=== PATIENT | male | born 1935 | race Caucasian/White ===

== ENCOUNTER 2018-03-13 14:36 | Inpatient (IN) ==
[2018-03-13] MEDS ORDERED: Ipratropium/Albuterol Neb 3 ML IH ONE (15:44)
[2018-03-13 15:50] LABS: Basophils # 0.1 K/mcL (0.0-0.2); Basophils % 1.2 %; Eosinophils # 0.2 K/mcL (0.0-0.6); Eosinophils % 4.2 %; Hematocrit 39.2 % (37.5-50.1); Hemoglobin 13.2 g/dL (12.9-16.9); Immature Granulocytes % 1.5 % (0-4); Lymphocytes # 0.7 K/mcL (0.6-4.6); Lymphocytes % 14.1 %; Mean Corpuscular HGB Conc 33.7 g/dL (31.6-35.5); Mean Corpuscular Hemoglobin 29.9 pg (28.0-33.3); Mean Corpuscular Volume 88.9 fL (83.0-100.0); Mean Platelet Volume 9.4 fL (9.4-12.4); Monocytes # 0.7 K/mcL (0.0-1.3); Monocytes % 13.5 %; Neutrophils # 3.4 K/mcL (1.6-8.9); Platelet Count 194 K/mcL (140-400); Red Blood Count 4.41 M/mcL (4.19-5.50); Red Cell Distribution Width 14.8 % (11.5-14.5); Segmented Neutrophils % 65.5 %
--- NOTE | 2018-03-13 15:56 | Emergency Department Note ---
Disposition Clinical Impression: Collapse of left lung, Mucus plugging of bronchi Disposition: Admitted As Inpatient Condition: Good Time of Disposition: 17:09 General Adult HPI - General Chief complaint: ED Shortness of Breath/Dyspnea Stated complaint: abnormal ct results/fluid in L lung sent from onc Time Seen by Provider: 03/13/18 14:59 Source: patient Mode of arrival: ambulatory Limitations: no limitations Nursing Notes Reviewed: Yes Vital Signs Reviewed: Yes - History of Present Illness HPI Narrative: Patient is an 82-year-old male that presents the emergency department for possible fluid on his lungs. Patient states that he was seen at the cancer center today and had a CT scan a follow-up on his lung cancer and was found to have fluid on his left long and was told to come to the emergency department immediately. Patient denies any chest pain, shortness of breath or any other symptoms at this time. Patient states that he is feeling well and has no complaints. States that he felt like his breathing was doing pretty well. Patient states that he wears 2 L of oxygen at home. Pain Scale: 0 - Related Data Home Medications Medication Instructions Recorded Confirmed Acetaminophen [Non-Aspirin] 650 mg PO QID PRN 07/11/16 03/13/18 Albuterol Sulfate [Albuterol 2 puff IH Q4H PRN 07/11/16 03/13/18 Inhaler] Aspirin [Lo-Dose Aspirin EC] 81 mg PO DAILY 07/11/16 03/13/18 Atorvastatin [Lipitor] 40 mg PO HS 07/11/16 03/13/18 Brimonidine Tartrate [Alphagan P] 5 ml OP BID 07/11/16 03/13/18 Carboxymethylcellulose Sodium 1 drop OP QID 07/11/16 03/13/18 [Refresh Celluvisc] Gabapentin [Neurontin] 300 mg PO BID 07/11/16 03/13/18 Latanoprost [Xalatan] 1 drop OP DAILY 07/11/16 03/13/18 Primidone [Mysoline] 100 mg PO BID 07/11/16 03/13/18 Propranolol [Inderal] 10 mg PO BID PRN 07/11/16 03/13/18 Terazosin [Hytrin] 2 mg PO HS 07/11/16 03/13/18 Albuterol Neb [AccuNeb] 3 ml IH QID PRN 02/16/17 03/13/18 Multivit-Min/Iron Fum/Folic AC 1 tab PO DAILY 08/16/17 03/13/18 [Cjngr-Fjjhrbh-Urvegxzj Tablet] Peg 400/Hypromellose/Glycerin 1 drop OP TID PRN 11/14/17 03/13/18 [Visine Tired Eye Relief Drop] Simethicone [Gas-X] 80 mg PO TID PRN 11/14/17 03/13/18 Tiotropium [Spiriva] 18 mcg IH DAILY 03/13/18 03/13/18 Previous Rx's Medication Instructions Recorded Zolpidem [Ambien] 10 mg PO HS #30 tablet 07/06/17 Omeprazole [PriLOSEC] 20 mg PO BID #60 capsule. 09/29/17 Allergies Allergy/AdvReac Type Severity Reaction Status Date / Time budesonide Allergy Heartburn Verified 03/13/18 14:41 Sulfa (Sulfonamide AdvReac Intermediate Rash Verified 03/13/18 14:41 Antibiotics) acetaminophen [From Vicodin] AdvReac Nausea Verified 03/13/18 14:41 Formoterol AdvReac Heartburn Verified 03/13/18 14:41 hydrocodone [From Vicodin] AdvReac Nausea Verified 03/13/18 14:41 All systems ED: reviewed and negative except as stated. Constitutional: Denies: fever Cardiovascular: Denies: chest pain Respiratory: Denies: dyspnea Gastrointestinal: Denies: abdominal pain, vomiting, diarrhea Past Medical History - Past Medical History Medical history: Reports: arthritis, asthma, cancer, COPD, GERD, glaucoma, hyperlipidemia Psychiatric history: Reports: no psych history - Social History Smoking Status: Current every day smoker Smokeless Tobacco Status: No Alcohol use: Reports: none Drug use: Reports: none Physical Exam - General Limitations: no limitations General appearance: alert, in no apparent distress - Head Head exam: atraumatic, normocephalic - Eye Eye exam: Present: normal appearance, EOMI - Neck Neck exam: Present: normal inspection, full ROM, trachea midline - Respiratory Respiratory exam: Present: other (coarse breath sounds on the left). Absent: respiratory distress, wheezes - Cardiovascular Cardiovascular exam: Present: regular rate, normal rhythm, normal heart sounds, +S1, +S2 - Abdominal Exam Abdominal exam: Present: soft, Non-Tender, normal bowel sounds - Neurological Exam Neurological exam: Present: alert, oriented X3 - Psychiatric Psychiatric exam: Present: normal affect, normal mood - Skin Skin exam: Present: warm, dry, intact Course Vital Signs Temperature 97.6 F 03/13/18 14:38 Pulse Rate 85 03/13/18 14:38 Respiratory Rate 18 03/13/18 14:38 Blood Pressure 124/58 03/13/18 14:38 O2 Sat by Pulse Oximetry 95 03/13/18 14:38 Temperature 97.6 F 03/13/18 14:38 Pulse Rate 77 03/13/18 16:34 Respiratory Rate 16 03/13/18 16:34 Blood Pressure 124/72 03/13/18 16:34 O2 Sat by Pulse Oximetry 96 03/13/18 16:34 Oxygen Delivery Oxygen Delivery Nasal Cannula Medical Decision Making - MDM Narrative Medical decision making narrative: Due to the patient presenting to the emergency department with possible fluid on his lungs laboratory testing, chest x-ray and EKG will be performed. CT scan show that there was collapse of the left upper lung likely secondary to mucous plugging. Patient was given DuoNeb therapies here in the emergency department as well as mucolytics. Patient's laboratory testing is unremarkable other than a mildly elevated BNP at 124. Patient is asymptomatic. Patient is afebrile and does not have a white count. I called and spoke the admitting hospitals and they have accepted the patient with a request of Zosyn being started and pulmonology being contacted. I called and spoke with the on-call underwater trapper and he has recommended that the patient be nothing by mouth at midnight, have chest percussion therapy and EzPAP therapy. Place an order for the chest percussion therapy and called and spoke with Cameron mcpherson respiratory therapist and she said she would take care of the EzPAP. Patient will be admitted to the hospital this time for further evaluation and management. - Medical Records Medical records reviewed: Yes I reviewed the patient's medical records. - Lab Data Lab results reviewed: Yes I reviewed the patient's lab results. Result diagrams: 03/13/18 15:25 03/13/18 15:25 Lab Results 03/13/18 03/13/18 03/13/18 Range/Units 15:25 15:25 15:25 WBC 5.2 (4.3-11.1) K/mcL RBC 4.41 (4.19-5.50) M/mcL Hgb 13.2 (12.9-16.9) g/dL Hct 39.2 (37.5-50.1) % MCV 88.9 (83.0-100.0) fL MCH 29.9 (28.0-33.3) pg MCHC 33.7 (31.6-35.5) g/dL RDW 14.8 H (11.5-14.5) % Plt Count 194 (140-400) K/mcL MPV 9.4 (9.4-12.4) fL Immature Gran % 1.5 (0-4) % Seg Neutrophils % 65.5 % Lymphocytes % 14.1 % Monocytes % 13.5 % Eosinophils % 4.2 % Basophils % 1.2 % Neutrophils # 3.4 (1.6-8.9) K/mcL Lymphocytes # 0.7 (0.6-4.6) K/mcL Monocytes # 0.7 (0.0-1.3) K/mcL Eosinophils # 0.2 (0.0-0.6) K/mcL Basophils # 0.1 (0.0-0.2) K/mcL Sodium 134 L (136-145) mEq/L Potassium 3.8 (3.5-5.1) mEq/L Chloride 103 (98-107) mEq/L Carbon Dioxide 23 (23-29) mEq/L BUN 17 (8-23) mg/dL Creatinine 0.91 (0.70-1.30) mg/dL Est GFR ( Amer) > 60 (> 60) Est GFR (Non-Af Amer) > 60 (> 60) BUN/Creatinine Ratio 19 (6-26) Glucose 105 (70-105) mg/dL Calculated Osmolality 280 (280-300) Lactic Acid 1.9 (0.5-2.2) mmol/L Calcium 8.7 (8.6-10.3) mg/dL Total Bilirubin 0.3 (0.3-1.0) mg/dL Direct Bilirubin 0.1 (0.0-0.2) mg/dL Indirect Bilirubin 0.2 (0.0-1.2) mg/dL AST 18 (13-39) Units/L ALT 11 (7-52) Units/L Alkaline Phosphatase 101 (34-104) Units/L Troponin I < 0.03 (< 0.04) ng/mL B-Natriuretic Peptide (Less than 100) pg/mL Serum Total Protein 6.6 (6.4-8.9) g/dL Albumin 3.6 (3.5-5.7) g/dL Globulin 3.0 (2.4-3.5) g/dL Albumin/Globulin Ratio 1.2 (1.1-2.2) 03/13/18 Range/Units 15:25 WBC (4.3-11.1) K/mcL RBC (4.19-5.50) M/mcL Hgb (12.9-16.9) g/dL Hct (37.5-50.1) % MCV (83.0-100.0) fL MCH (28.0-33.3) pg MCHC (31.6-35.5) g/dL RDW (11.5-14.5) % Plt Count (140-400) K/mcL MPV (9.4-12.4) fL Immature Gran % (0-4) % Seg Neutrophils % % Lymphocytes % % Monocytes % % Eosinophils % % Basophils % % Neutrophils # (1.6-8.9) K/mcL Lymphocytes # (0.6-4.6) K/mcL Monocytes # (0.0-1.3) K/mcL Eosinophils # (0.0-0.6) K/mcL Basophils # (0.0-0.2) K/mcL Sodium (136-145) mEq/L Potassium (3.5-5.1) mEq/L Chloride (98-107) mEq/L Carbon Dioxide (23-29) mEq/L BUN (8-23) mg/dL Creatinine (0.70-1.30) mg/dL Est GFR ( Amer) (> 60) Est GFR (Non-Af Amer) (> 60) BUN/Creatinine Ratio (6-26) Glucose (70-105) mg/dL Calculated Osmolality (280-300) Lactic Acid (0.5-2.2) mmol/L Calcium (8.6-10.3) mg/dL Total Bilirubin (0.3-1.0) mg/dL Direct Bilirubin (0.0-0.2) mg/dL Indirect Bilirubin (0.0-1.2) mg/dL AST (13-39) Units/L ALT (7-52) Units/L Alkaline Phosphatase (34-104) Units/L Troponin I (< 0.04) ng/mL B-Natriuretic Peptide 124 H (Less than 100) pg/mL Serum Total Protein (6.4-8.9) g/dL Albumin (3.5-5.7) g/dL Globulin (2.4-3.5) g/dL Albumin/Globulin Ratio (1.1-2.2) - Radiology Data Radiology results reviewed: Yes I reviewed the patient's radiology results. Chest X-Ray 03/13/18 15:02 IMPRESSION: 1. COPD with stable right lung post treatment changes. 2. New since the prior chest radiograph and identified on the CT chest 03/13/2018 there are new trace bilateral pleural effusions and new complete left upper lobe atelectasis. D/ / Orlin Dai MD / Orlin Dai MD Interpreting Provider: Orlin Dai MD - EKG Data EKG #1 EKG attestation: Yes I reviewed and interpreted this EKG. EKG results narrative: EKG shows a sinus rhythm at a rate of 82 bpm, CA interval 165, QRS duration of 94, QTc of 432 with a normal axis. There are occasional PVCs present. This is compared to previous EKG on 09/17/1999 which showed a sinus rhythm rate of 72 bpm. No evidence of STEMI and EKG. Attestation Statement - Attestation Attestation: I examined this patient and my medical decision-making was reviewed with the Resident Physician. I agree with the documented findings, disposition and treatment plan as described except to the extent set forth below. Findings consistent with upper lobe colapse from suspected mucus plugging. Will consult pulmonary, start antibiotics, bronchodilators, chest percussion therapy and flutter valve. Will admit for further management.
[2018-03-13 16:12] LABS: Alanine Aminotransferase 11 Units/L (7-52); Albumin 3.6 g/dL (3.5-5.7); Albumin/Globulin Ratio 1.2 (1.1-2.2); Alkaline Phosphatase 101 Units/L (34-104); Aspartate Amino Transferase 18 Units/L (13-39); BUN/Creatinine Ratio 19 (6-26); Bilirubin,Direct 0.1 mg/dL (0.0-0.2); Bilirubin,Indirect 0.2 mg/dL (0.0-1.2); Bilirubin,Total 0.3 mg/dL (0.3-1.0); Blood Urea Nitrogen 17 mg/dL (8-23); Calcium 8.7 mg/dL (8.6-10.3); Carbon Dioxide 23 mEq/L (23-29); Chloride 103 mEq/L (98-107); Glucose 105 mg/dL (70-105); Osmolality,Calculated 280 (280-300); Potassium 3.8 mEq/L (3.5-5.1); Sodium 134 mEq/L (136-145); Total Protein 6.6 g/dL (6.4-8.9); Troponin I < 0.03 ng/mL (< 0.04); eGFR For African Americans > 60 (> 60); eGFR For Non-African Americans > 60 (> 60)
[2018-03-13] MEDS ORDERED: Piperacillin/Tazobactam 3.375 GM in 0.9 % Sodium Chloride Mini Bag 100 ML IVPB ONE (16:42)
[2018-03-13] MEDS ORDERED: Naloxone 0.4 MG/ML INJ IVP PRN (17:29)
[2018-03-13] MEDS ORDERED: HYPROMELLOSE OP PRN (17:32)
[2018-03-13] MEDS ORDERED: Acetaminophen 325 MG TABLET PO PRN (17:32)
[2018-03-13] MEDS ORDERED: PEG OP PRN (17:32)
[2018-03-13] MEDS ORDERED: Simethicone 80 MG TAB.CHEW PO PRN (17:32)
[2018-03-13] MEDS ORDERED: Albuterol Neb 1.25 MG/3 ML VIAL IH PRN (17:32)
[2018-03-13] MEDS ORDERED: GLYCERIN OP PRN (17:32)
--- NOTE | 2018-03-13 20:23 | Internal Med History&Physical ---
Date of Encounter: 03/13/18 Time of Encounter: 20:11 Internal Medicine - H&P: HPI Chief complaint: Fluid in the lung Admitted From: Home History of present illness: Mr. Ashton is a 82 year old male with history of left lung cancer status post chemoradiation in remission since last year but follow oncologist Dr. Azevedo at [facility], COPD on 2 L home oxygen, hypertension, hyperlipidemia was sent to ER by his oncologist after finding fluid on CT chest that was ordered as a follow-up before his scheduled appointment that supposed to be on of this month. Patient and also CT scan that showed that there was collapse of left upper lung likely secondary to mucus. DuoNeb, IV Zosyn and mucolytic's was given in the ER [place] ER physician also consulted filler spreader who recommended nothing by mouth midnight, chest percussion therapy and easy Pap therapy Patient denies any chest pain, shortness of breath vomiting headache dizziness abdominal pain urinary or bowel complaint. Patient also denies hemoptysis, melena, hematochezia. Patient has chronic dyspnea on exertion as a part of COPD. He also has chronic low appetite since after chemotherapy. Past Med Surg Social Fam HX - Past Medical History Medical history: arthritis, asthma, cancer, COPD, GERD, glaucoma, hyperlipidemia Psychiatric history: no psych history - Social History Smoking Status: Current every day smoker Smokeless Tobacco Status: No Alcohol use: none Drug use: none - Family History Mother Adopted: No Family Member Ethnicity: Non- Living Status: Hx Family Cardiac Disorders: Yes ([place]) Hx Family Respiratory Disorders: No Hx Family Cancer: No Hx Family GI Disorders: No Hx Family Endocrine Disorder: No Hx Family Neuromuscular Disorders: No Hx Family Neurologic Disorders: No Hx Family HEENT Disorders: No Hx Family Autoimmune Disorders: No Internal Medicine - H&P: Meds Acetaminophen [Non-Aspirin] 650 mg PO QID PRN 07/11/16 [History] Albuterol Sulfate [Albuterol Inhaler] 2 puff IH Q4H PRN 07/11/16 [History] Aspirin [Lo-Dose Aspirin EC] 81 mg PO DAILY 07/11/16 [History] Atorvastatin [Lipitor] 40 mg PO HS 07/11/16 [History] Brimonidine Tartrate [Alphagan P] 5 ml OP BID 07/11/16 [History] Carboxymethylcellulose Sodium [Refresh Celluvisc] 1 drop OP QID 07/11/16 [ History] Gabapentin [Neurontin] 300 mg PO BID 07/11/16 [History] Latanoprost [Xalatan] 1 drop OP DAILY 07/11/16 [History] Primidone [Mysoline] 100 mg PO BID 07/11/16 [History] Propranolol [Inderal] 10 mg PO BID PRN 07/11/16 [History] Terazosin [Hytrin] 2 mg PO HS 07/11/16 [History] Albuterol Neb [AccuNeb] 3 ml IH QID PRN 02/16/17 [History] Zolpidem [Ambien] 10 mg PO HS #30 tablet 07/06/17 [Rx] Multivit-Min/Iron Fum/Folic AC [Jbenh-Kpwkrlm-Vesehxze Tablet] 1 tab PO DAILY [History] Omeprazole [PriLOSEC] 20 mg PO BID #60 capsule. 09/29/17 [Rx] Peg 400/Hypromellose/Glycerin [Visine Tired Eye Relief Drop] 1 drop OP TID PRN 11/14/17 [History] Simethicone [Gas-X] 80 mg PO TID PRN 11/14/17 [History] Tiotropium [Spiriva] 18 mcg IH DAILY 03/13/18 [History] 3 Allergy/AdvReac Type Severity Reaction Status Date / Time budesonide Allergy Heartburn Verified 03/13/18 14:41 Sulfa (Sulfonamide AdvReac Intermediate Rash Verified 03/13/18 14:41 Antibiotics) acetaminophen [From Vicodin] AdvReac Nausea Verified 03/13/18 14:41 Formoterol AdvReac Heartburn Verified 03/13/18 14:41 hydrocodone [From Vicodin] AdvReac Nausea Verified 03/13/18 14:41 All Systems PM: A 10-system review of systems was performed and is negative for pertinent findings except as documented above in the HPI. - Constitutional Vitals: Temp Pulse Resp BP Pulse Ox 98.7 F 90 20 115/71 94 03/13/18 19:17 03/13/18 19:17 03/13/18 19:17 03/13/18 19:17 03/13/18 19:17 Exam: General appearance: No acute distress, A&O X 3, oxygen by nasal cannula 2 L Head exam: Atraumatic Eye exam: EOMI, PERRLA ENT exam: Moist oral mucosa Neck nontender, supple Respiratory exam: Decreased breath sound on left side of lung. Normal breath sound on right Cardiovascular exam: Regular rate and rhythm, no systolic murmur Abdominal exam: Soft, nontender, nondistended, positive bowel sounds Extremities exam: No calf tenderness, no pedal edema Present: Skin-no rash, warm, dry, intact Neurological exam: Alert, awake, oriented 3, CN II-XII intact, no focal deficits. No facial droop. Normal speech. Psychiatric-normal mood, normal affect Internal Med - H&P Results - Labs CBC & Chem 7: 03/13/18 15:25 03/13/18 15:25 - Assessment and plan (1) Collapse of left lung Current Visit: Yes Status: Acute Assessment and plan: On CT chest. Also bilateral small pleural effusion. Patient denied any new onset of symptom. Patient has chronic shortness of breath and on home oxygen because of COPD. Consulted filler spreader who advised chest Parkinson's and he CPAP. Continue DuoNeb and close monitoring. Overnight pulse ox ordered (2) Lung cancer Current Visit: No Status: Acute Assessment and plan: Status post chemoradiation and has been in remission since 2017. follows oncologist. Will consult oncology tomorrow morning as per attending physician decision. Qualifiers: Laterality: left Lung location: upper lobe of lung Qualified Code(s): C34.12 - Malignant neoplasm of upper lobe, left bronchus or lung (3) COPD (chronic obstructive pulmonary disease) Current Visit: Yes Status: Acute Assessment and plan: Does not appear in acute exacerbation. Continue home medicine, home oxygen. Close monitoring Qualifiers: COPD type: unspecified COPD Qualified Code(s): J44.9 - Chronic obstructive pulmonary disease, unspecified (4) Hyperlipidemia Current Visit: Yes Status: Acute Assessment and plan: Continue home medicine Qualifiers: Hyperlipidemia type: unspecified Qualified Code(s): E78.5 - Hyperlipidemia , unspecified (5) GERD (gastroesophageal reflux disease) Current Visit: Yes Status: Acute Assessment and plan: Continue home medicine. Stable. No active bleeding Qualifiers: Esophagitis presence: esophagitis presence not specified Qualified Code(s) : K21.9 - Gastro-esophageal reflux disease without esophagitis (6) DVT prophylaxis Current Visit: Yes Status: Acute Assessment and plan: SCDs. Heparin - Time Spent With Patient Total time spent is greater than 50% in coordination of care (as documented) at patient's floor/unit and/or counseling patient: 25 - 35 minutes
[2018-03-13] MEDS: Gabapentin 300 MG CAPSULE PO SCH (21:00)
[2018-03-13] MEDS: Primidone 50 MG TABLET PO SCH (21:00)
[2018-03-13] MEDS: CARBOXYMETHYLCELLULOSE SODIUM OP SCH (21:06)
[2018-03-14 04:02] LABS: Basophils % 0.5 %; Eosinophils # 0.2 K/mcL (0.0-0.6); Eosinophils % 2.7 %; Hematocrit 35.2 % (37.5-50.1); Hemoglobin 11.8 g/dL (12.9-16.9); Immature Granulocytes % 1.4 % (0-4); Lymphocytes # 0.8 K/mcL (0.6-4.6); Mean Corpuscular HGB Conc 33.5 g/dL (31.6-35.5); Mean Corpuscular Hemoglobin 29.5 pg (28.0-33.3); Mean Platelet Volume 9.5 fL (9.4-12.4); Monocytes # 0.8 K/mcL (0.0-1.3); Monocytes % 11.6 %; Neutrophils # 4.8 K/mcL (1.6-8.9); Platelet Count 172 K/mcL (140-400); Segmented Neutrophils % 71.8 %
[2018-03-14] MEDS ORDERED: Benzonatate 100 MG CAPSULE PO PRN (04:24)
[2018-03-14 04:27] LABS: BUN/Creatinine Ratio 16 (6-26); Blood Urea Nitrogen 15 mg/dL (8-23); Calcium 8.8 mg/dL (8.6-10.3); Carbon Dioxide 23 mEq/L (23-29); Chloride 104 mEq/L (98-107); Glucose 105 mg/dL (70-105); Magnesium 1.8 mg/dL (1.6-2.6); Osmolality,Calculated 281 (280-300); Phosphorous 3.7 mg/dL (2.7-4.5); Potassium 3.9 mEq/L (3.5-5.1); Sodium 135 mEq/L (136-145); eGFR For African Americans > 60 (> 60); eGFR For Non-African Americans > 60 (> 60)
[2018-03-14] MEDS ORDERED: *HR* Heparin 5,000 UNIT/ML VIAL SQ SCH (06:00)
--- NOTE | 2018-03-14 06:41 | Pulmonology Consult Note ---
Date of Encounter: 03/14/18 Time of Encounter: 06:41 Assessment and Plan (1) Mucus plugging of bronchi Current Visit: Yes Status: Acute I suspect this is related to patient's chronic bronchitic phenotype with his underlying COPD. -Start azithromycin 500 mg 1 day with 250 mg on subsequent days 4 to complete a total of 5 days -Start oral N-acetylcysteine 600 mg twice a day patient should be discharged with this medication -Airway clearance with incentive spirometer and Acapella (TID 15-20 times per session) -A bronchoscopy is recommended. The procedure , risks, benefits, complications, and expected outcomes have been reviewed. Benefits of diagnosis, as well as risks to include bleeding, infection, pneumothorax which may require surgical intervention, and in a small population. The patient is aware that sometimes test is nondiagnostic. Discussed with patient and agrees to proceed. (2) COPD exacerbation Current Visit: Yes Status: Acute Send sputum culture Start prednisone 40 mg with plan to taper over 2 weeks Schedule bronchodilators every 6 hours (duo nebs) with every hour albuterol as needed Start Symbicort 160/4.5 2 puffs twice a day (3) Tobacco abuse Current Visit: Yes Status: Acute Tobacco cessation counseling given (4) Non-small cell lung cancer (NSCLC) Current Visit: Yes Status: Acute Follow up with oncology and radiation oncology Qualifiers: Laterality: unspecified laterality Qualified Code(s): C34.90 - Malignant neoplasm of unspecified part of unspecified bronchus or lung (5) DVT prophylaxis Current Visit: Yes Status: Acute Recommend chemical DVT prophylaxis while inpatient History of Present Illness Consult date: 03/14/18 Requesting physician: Radha Whitaker Reason for consult: abnormal CXR/CT Chief complaint: Mucus in Airway History of present illness: This is a pleasant 82-year-old gentleman with this stage IIb non-small cell lung cancer medically inoperable he has a past medical history of chronic hypoxic respiratory failure secondary to COPD FEV1=57%ppd (2016). His undergone chemoradiation with curative intent last chemotherapy was in late 2017. His recently undergone radiation therapy with [place] radiation oncology Dr. Azevedo. He presented to the emergency room yesterday after he was notified by his Radiation/oncologist to come to eD after surveillance CT scan was performed notable for left upper lobe collapse likely secondary to mucus plugging. Patient sees had difficult time over last few weeks with the amount of mucus that his been produced. And has felt more short of breath he denies any wheezing fever chills or hemoptysis. He also denies any significant weight loss. He continues to smoke about a half a pack a day and is trying to stop entirely Pulmonary was consulted for further evaluation of left upper lobe collapse. Past Med Surg Social Fam HX - Past Medical History Medical history: arthritis, asthma, cancer, COPD, GERD, glaucoma, hyperlipidemia Psychiatric history: no psych history - Past Surgical History Additional surgical history: Gall bladder removal, hernia repair, cancer removal right eye, tumor removal on neck - Social History Smoking Status: Current every day smoker Packs per day: 0.5 Smokeless Tobacco Status: No Alcohol use: none Drug use: none - Family History Mother Adopted: No Family Member Ethnicity: Non- Living Status: Hx Family Cardiac Disorders: Yes ([place]) Hx Family Respiratory Disorders: No Hx Family Cancer: No Hx Family GI Disorders: No Hx Family Endocrine Disorder: No Hx Family Neuromuscular Disorders: No Hx Family Neurologic Disorders: No Hx Family HEENT Disorders: No Hx Family Autoimmune Disorders: No Medications and Allergies Acetaminophen [Non-Aspirin] 650 mg PO QID PRN 07/11/16 [History] Albuterol Sulfate [Albuterol Inhaler] 2 puff IH Q4H PRN 07/11/16 [History] Aspirin [Lo-Dose Aspirin EC] 81 mg PO DAILY 07/11/16 [History] Atorvastatin [Lipitor] 40 mg PO HS 07/11/16 [History] Brimonidine Tartrate [Alphagan P] 5 ml OP BID 07/11/16 [History] Carboxymethylcellulose Sodium [Refresh Celluvisc] 1 drop OP QID 07/11/16 [ History] Gabapentin [Neurontin] 300 mg PO BID 07/11/16 [History] Latanoprost [Xalatan] 1 drop OP DAILY 07/11/16 [History] Primidone [Mysoline] 100 mg PO BID 07/11/16 [History] Propranolol [Inderal] 10 mg PO BID PRN 07/11/16 [History] Terazosin [Hytrin] 2 mg PO HS 07/11/16 [History] Albuterol Neb [AccuNeb] 3 ml IH QID PRN 02/16/17 [History] Zolpidem [Ambien] 10 mg PO HS #30 tablet 10/26/17 [Rx] Multivit-Min/Iron Fum/Folic AC [Ebite-Liqsrfh-Irneogyw Tablet] 1 tab PO DAILY [History] Omeprazole [PriLOSEC] 20 mg PO BID #60 capsule. 09/29/17 [Rx] Peg 400/Hypromellose/Glycerin [Visine Tired Eye Relief Drop] 1 drop OP TID PRN 11/14/17 [History] Simethicone [Gas-X] 80 mg PO TID PRN 11/14/17 [History] Tiotropium [Spiriva] 18 mcg IH DAILY 03/13/18 [History] 3 Allergy/AdvReac Type Severity Reaction Status Date / Time budesonide Allergy Heartburn Verified 03/13/18 14:41 Sulfa (Sulfonamide AdvReac Intermediate Rash Verified 03/13/18 14:41 Antibiotics) acetaminophen [From Vicodin] AdvReac Nausea Verified 03/13/18 14:41 Formoterol AdvReac Heartburn Verified 03/13/18 14:41 hydrocodone [From Vicodin] AdvReac Nausea Verified 03/13/18 14:41 All Systems: The remainder of the systems were reviewed and are negative Physical Examination Vital Signs: Vital Signs, Last 4 Hours Temp Pulse Resp BP Pulse Ox 03/14/18 03:55 98.1 F 87 20 101/55 94 General appearance: no acute distress Eyes: nonicteric ENT: oropharynx moist Neck: no JVD Effort: normal Auscultation: bilateral: wheezes, rhonchi (scattered primarily in upper lung orr ) Cardiovascular: regular rate and rhythm Gastrointestinal: normoactive bowel sounds Integumentary: normal Extremities: no edema Musculoskeletal: no deformities normal mental status, non-focal exam mood appropriate Results - Laboratory Findings CBC and BMP: 03/14/18 03:27 03/14/18 03:27 Abnormal lab findings: Abnormal lab results RBC 4.00 M/mcL (4.19-5.50) L 03/14/18 03:27 Hgb 11.8 g/dL (12.9-16.9) L 03/14/18 03:27 Hct 35.2 % (37.5-50.1) L 03/14/18 03:27 RDW 15.0 % (11.5-14.5) H 03/14/18 03:27 Sodium 135 mEq/L (136-145) L 03/14/18 03:27 B-Natriuretic Peptide 124 pg/mL (Less than 100) H 03/13/18 15:25 - Diagnostic Findings Chest x-ray: report reviewed, image reviewed CT scan - chest: report reviewed, image reviewed - Clinical Findings Intake & Output: Intake & Output 03/13/18 03/13/18 03/14/18 15:59 23:59 07:59 Intake Total 100 / 100 0 / 0 Output Total 400 / 400 450 / 450 Balance -300 / -300 -450 / -450 Weight 69 kg Consult Discharge Plan - Plan [facility]errals: [facility]Primary Care Provider[facility] -
--- NOTE | 2018-03-14 07:58 | Internal Med Progress Note ---
<Reece Bustos - Last Filed: 03/14/18 17:18> Date of Encounter: 03/14/18 - Assessment and plan (1) Collapse of left lung Current Visit: Yes Status: Acute (2) Lung cancer Current Visit: No Status: Acute Qualifiers: Laterality: left Lung location: upper lobe of lung Qualified Code(s): C34.12 - Malignant neoplasm of upper lobe, left bronchus or lung (3) COPD (chronic obstructive pulmonary disease) Current Visit: Yes Status: Chronic Qualifiers: COPD type: unspecified COPD Qualified Code(s): J44.9 - Chronic obstructive pulmonary disease, unspecified (4) Hyperlipidemia Current Visit: Yes Status: Chronic Qualifiers: Hyperlipidemia type: mixed hyperlipidemia Qualified Code(s): E78.2 - Mixed hyperlipidemia (5) GERD (gastroesophageal reflux disease) Current Visit: Yes Status: Acute Qualifiers: Esophagitis presence: esophagitis presence not specified Qualified Code(s) : K21.9 - Gastro-esophageal reflux disease without esophagitis (6) DVT prophylaxis Current Visit: Yes Status: Acute - Time Spent With Patient Total time spent is greater than 50% in coordination of care (as documented) at patient's floor/unit and/or counseling patient: - Constitutional Vitals: Temp Pulse Resp BP Pulse Ox 97.8 F 79 18 102/61 93 03/14/18 15:00 03/14/18 15:00 03/14/18 15:00 03/14/18 15:00 03/14/18 15:00 Internal Medicine: Result - Labs CBC & Chem 7: 03/14/18 03:27 03/14/18 03:27 Labs: Short CBC 03/14/18 Range/Units 03:27 WBC 6.6 (4.3-11.1) K/mcL Hgb 11.8 L (12.9-16.9) g/dL Hct 35.2 L (37.5-50.1) % Plt Count 172 (140-400) K/mcL Neutrophils # 4.8 (1.6-8.9) K/mcL BMP 03/14/18 03:27 Sodium 135 L Potassium 3.9 Chloride 104 Carbon Dioxide 23 BUN 15 Creatinine 0.92 Glucose 105 Calcium 8.8 - ABG Interpretation ABG results: PT/INR, D-dimer PT 12.5 Seconds (9.4-12.1) H 03/14/18 08:34 Consult Discharge Plan - Plan [facility] Care Provider[facility] - - Attending Attestation I examined this patient and my medical decision-making was reviewed with the Resident Physician on 03/14/18. I agree with the documented findings, disposition and treatment plan as described except to the extent set forth below. Mr Ashton is currently admitted for atelectasis and RAMOS collapse associated with mucus plug. He had bronchoscopy today and lung lesion found. He remains moderate to high risk due to potential for worsening clinical status. Mr Ashton is doing OK. He had bronch today. BP was too low so it is to be repeated tomorrow with biopsy. No fever or chills. No GI issues. Exam alert Comfortable Mucus membranes dry Heart not tachy No wheeze abd soft I/P 1. RAMOS collapse 2. Mucus plug 3. Lung cancer Further diagnoses and plan as above. <Franci Macario N - Last Filed: 03/14/18 17:53> Date of Encounter: 03/14/18 Time of Encounter: 17:38 - Assessment and plan (1) Collapse of left lung Current Visit: Yes Status: Acute Assessment and plan: Patient is stable, though he is having some hemoptysis since his bronchoscopy. Considering high suspicion for lung cancer recurrence, patient will be kept inpatient and made NPO after midnight, with plan to repeat bronchoscopy under general anesthesia tomorrow. Appreciate pulmonology input in management of this patient. (2) COPD (chronic obstructive pulmonary disease) Current Visit: Yes Status: Chronic Assessment and plan: Stable. Patient does not appear to be having acute exacerbation. He uses oxygen at home for chronic shortness of breath, which is available to him here as well. He denies any worsening symptoms. Qualifiers: COPD type: unspecified COPD Qualified Code(s): J44.9 - Chronic obstructive pulmonary disease, unspecified (3) Lung cancer Current Visit: No Status: Acute Assessment and plan: Continued outpatient follow up with oncology and radiation oncology. Will likely need further oncology input depending on results of his biopsy. Qualifiers: Laterality: left Lung location: upper lobe of lung Qualified Code(s): C34.12 - Malignant neoplasm of upper lobe, left bronchus or lung (4) Hyperlipidemia Current Visit: Yes Status: Chronic Assessment and plan: Continue home medications. Qualifiers: Hyperlipidemia type: mixed hyperlipidemia Qualified Code(s): E78.2 - Mixed hyperlipidemia (5) GERD (gastroesophageal reflux disease) Current Visit: Yes Status: Acute Assessment and plan: Continue home medication regimen. Qualifiers: Esophagitis presence: esophagitis presence not specified Qualified Code(s) : K21.9 - Gastro-esophageal reflux disease without esophagitis (6) DVT prophylaxis Current Visit: Yes Status: Acute Assessment and plan: Heparin held due to hemoptysis after bronchoscopy. - Time Spent With Patient Total time spent is greater than 50% in coordination of care (as documented) at patient's floor/unit and/or counseling patient: - Subjective Interval history: Mr. Ashton is an 82-year old male with a history of lung cancer who was admitted after chest CT showed atelectasis and partial left lung collapse. He underwent bronchoscopy today, during which a lung mass was found. Biopsy was not performed due to patient blood pressure during the procedure. He is planned for bronchoscopy with biopsy tomorrow under general anesthesia. He reports some hemoptysis following bronchoscopy. - Constitutional Vitals: Temp Pulse Resp BP Pulse Ox 97.8 F 72 18 100/63 95 03/14/18 07:00 03/14/18 07:00 03/14/18 07:00 03/14/18 07:00 03/14/18 07:00 General appearance: Present: A&O X 0 Exam: Pleasant elderly gentleman resting comfortably in bed. He does not appear to be in distress and answers questions appropriately. - Head Head exam: Present: atraumatic, normal inspection, normocephalic - Respiratory Additional comments: Bilateral rhonchi present. - Cardiovascular Additional comments: Regular rate and rhythm. No gallops, murmurs, or rubs. Internal Medicine: Result - Labs CBC & Chem 7: 03/14/18 03:27 03/14/18 03:27 Labs: Short CBC 03/14/18 Range/Units 03:27 WBC 6.6 (4.3-11.1) K/mcL Hgb 11.8 L (12.9-16.9) g/dL Hct 35.2 L (37.5-50.1) % Plt Count 172 (140-400) K/mcL Neutrophils # 4.8 (1.6-8.9) K/mcL BMP 03/14/18 03:27 Sodium 135 L Potassium 3.9 Chloride 104 Carbon Dioxide 23 BUN 15 Creatinine 0.92 Glucose 105 Calcium 8.8 - VTE Documentation of Mechanical Device: Intermittent pneumatic compression device
[2018-03-14] MEDS: Primidone 50 MG TABLET PO SCH ×2 (08:28→20:29)
[2018-03-14] MEDS: Gabapentin 300 MG CAPSULE PO SCH ×2 (08:28→20:29)
[2018-03-14] MEDS: Multivit/Ca/Min/Fe/FA 1 TAB TABLET PO SCH (08:28)
[2018-03-14] MEDS: Aspirin Enteric Coated 81 MG Tablet PO SCH (08:28)
[2018-03-14] MEDS: CARBOXYMETHYLCELLULOSE SODIUM OP SCH ×4 (08:29→20:29)
[2018-03-14 08:56] LABS: INR 1.1; Prothrombin Time 12.5 Seconds (9.4-12.1)
[2018-03-14] MEDS ORDERED: Tetracaine/Benzocaine/Butamben 200MG/SPRAY (100SPY/BOT) MM ONE (09:59)
[2018-03-14] MEDS ORDERED: *HR* FentaNYL (PF) 100 MCG/2 ML VIAL IVP ONE (09:59)
[2018-03-14] MEDS ORDERED: *HR* Midazolam HCl 5 MG/5 ML VIAL IVP ONE ×2 (09:59→10:47)
[2018-03-14] MEDS ORDERED: *HR* EPINEPHrine 1 MG/10 ML SYRINGE INTRATRACH PRN (09:59)
--- NOTE | 2018-03-14 09:59 | Pre-Sedation Evaluation ---
Pre-sedation evaluation - Pre-sedation checklist Date of procedure: 03/14/18 Procedure: Bronc Recent Vitals: Last Vital Signs Temp 97.8 F 03/14/18 07:00 Pulse 72 03/14/18 07:00 Resp 18 03/14/18 07:00 BP 100/63 03/14/18 07:00 Pulse Ox 95 03/14/18 07:00 H&P (including ROS) documented in medical record: Yes Previous reaction to sedatives/anesthetics: No Dietary Status: NPO after Midnight Airway Assessment: Patient can open mouth completely, TMJ function normal Possible difficult airway: No ASA Classification *see protocol: CLASS III-Severe systemic disease Plan of Care: Pt appropriate candidate for procedure/moderate/conscious sedation , Risks/benefits of procedure/sedation discussed w/ patient/family Cardiac Registry (Cardio Only) - Functional Capacity - Clincal Frailty Scale
[2018-03-14] MEDS ORDERED: *HR* FentaNYL (PF) 100 MCG/2 ML VIAL ONE (10:48)
[2018-03-14] MEDS ORDERED: Lidocaine Viscous Oral Soln 15 ML SOLUTION ONE (10:48)
[2018-03-14] MEDS: Tiotropium 18 MCG inhalation IH SCH (10:54)
[2018-03-14] MEDS ORDERED: Albuterol 2.5 MG/3 ML NEBULIZER ONE (11:09)
[2018-03-14] MEDS ORDERED: Albuterol 2.5 MG/3 ML NEBULIZER IH ONE (11:17)
[2018-03-14] MEDS: *HR* Acetylcysteine 20% 600 MG/3 ML ORAL SYRINGE PO SCH ×2 (13:40→21:26)
[2018-03-14] MEDS: predniSONE 20 MG TABLET PO SCH (13:40)
[2018-03-14] MEDS: Latanoprost 2.5 ML BOTTLE BOTH EYES SCH (20:26)
[2018-03-14] MEDS: Ringers Solution, Lactated 1,000 ML IVC SCH (20:26)
[2018-03-15 03:37] LABS: Basophils % 0.7 %; Eosinophils % 0.5 %; Hematocrit 35.8 % (37.5-50.1); Hemoglobin 11.7 g/dL (12.9-16.9); Immature Granulocytes % 1.7 % (0-4); Immature Platelets 2.6 % (1.1-6.1); Lymphocytes # 0.5 K/mcL (0.6-4.6); Lymphocytes % 11.6 %; Mean Corpuscular HGB Conc 32.7 g/dL (31.6-35.5); Mean Corpuscular Hemoglobin 28.7 pg (28.0-33.3); Mean Platelet Volume 9.8 fL (9.4-12.4); Monocytes # 0.4 K/mcL (0.0-1.3); Monocytes % 9.4 %; Neutrophils # 3.1 K/mcL (1.6-8.9); Platelet Count 193 K/mcL (140-400); Red Blood Count 4.07 M/mcL (4.19-5.50); Red Cell Distribution Width 14.7 % (11.5-14.5); Segmented Neutrophils % 76.1 %
[2018-03-15 04:03] LABS: BUN/Creatinine Ratio 19 (6-26); Blood Urea Nitrogen 17 mg/dL (8-23); Calcium 8.7 mg/dL (8.6-10.3); Carbon Dioxide 22 mEq/L (23-29); Chloride 103 mEq/L (98-107); Glucose 135 mg/dL (70-105); Osmolality,Calculated 280 (280-300); Potassium 3.9 mEq/L (3.5-5.1); Sodium 133 mEq/L (136-145); eGFR For African Americans > 60 (> 60); eGFR For Non-African Americans > 60 (> 60)
--- NOTE | 2018-03-15 06:53 | Pulmonology Progress Note ---
Date of Encounter: 03/15/18 Time of Encounter: 06:53 Assessment and Plan (1) Non-small cell lung cancer (NSCLC) Current Visit: Yes Status: Acute Bronchoscopy today was notable for positive non-small cell lung cancer likely squamous cell lung cancer in the left upper lobe I have notified his primary oncologist and radiation oncologist follow-up outpatient with these 2 providers for ongoing care Qualifiers: Laterality: unspecified laterality Qualified Code(s): C34.90 - Malignant neoplasm of unspecified part of unspecified bronchus or lung (2) Mucus plugging of bronchi Current Visit: Yes Status: Acute Status post bronchoscopy with suctioning of this area there was mucous plugging but it was concealing underlying tumor 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 Outpatient follow-up with pulmonary Dr. Matthew at the [facility] (4) Tobacco abuse Current Visit: Yes Status: Acute Tobacco cessation counseling given (5) DVT prophylaxis Current Visit: Yes Status: Acute Per routine Stable for discharge from pulmonary standpoint follow-up as needed with [facility] thank you for allowing us participate in the care of this very pleasant patient Subjective Principal diagnosis: RAMOS Collapse Interval history: I saw Jennifer after bronchoscopy today that was completed without untoward effect. He says his breathing is just fine now he denies any symptoms such as hemoptysis or difficulty swallowing/speaking he has been able to eat lunch without difficulty as well Objective PUL Vital signs: Last Vital Signs Temp 97.7 F 03/15/18 05:42 Pulse 66 03/15/18 05:42 Resp 16 03/15/18 05:42 BP 123/70 03/15/18 05:42 Pulse Ox 97 03/15/18 05:42 General appearance: no acute distress Auscultation: bilateral: rhonchi Cardiovascular: regular rate and rhythm Integumentary: normal Extremities: no edema, no clubbing Musculoskeletal: no deformities normal mental status, non-focal exam mood appropriate Results - Laboratory Findings CBC and BMP: 03/15/18 03:03 03/15/18 03:03 PT/INR, D-dimer PT 12.5 Seconds (9.4-12.1) H 03/14/18 08:34 Abnormal lab findings: Abnormal lab results WBC 4.0 K/mcL (4.3-11.1) L 03/15/18 03:03 RBC 4.07 M/mcL (4.19-5.50) L 03/15/18 03:03 Hgb 11.7 g/dL (12.9-16.9) L 03/15/18 03:03 Hct 35.8 % (37.5-50.1) L 03/15/18 03:03 RDW 14.7 % (11.5-14.5) H 03/15/18 03:03 Lymphocytes # 0.5 K/mcL (0.6-4.6) L 03/15/18 03:03 PT 12.5 Seconds (9.4-12.1) H 03/14/18 08:34 Sodium 133 mEq/L (136-145) L 03/15/18 03:03 Carbon Dioxide 22 mEq/L (23-29) L 03/15/18 03:03 Glucose 135 mg/dL (70-105) H 03/15/18 03:03 POC Glucose 156 mg/dL (70-99) H 03/14/18 23:13 B-Natriuretic Peptide 124 pg/mL (Less than 100) H 03/13/18 15:25 - Microbiology Findings Microbiology Findings: Microbiology, Last 48 Hours 03/14/18 14:46 Sputum Culture - Preliminary Sputum - Clinical Findings Intake & Output: Intake & Output 03/14/18 03/14/18 03/15/18 15:59 23:59 07:59 Intake Total 240 / 240 0 / 0 Output Total 250 / 250 300 / 300 0 / 0 Balance -250 / -250 -60 / -60 0 / 0 Weight 65.7 kg - VTE Documentation of Mechanical Device: Intermittent pneumatic compression device Consult Discharge Plan - Plan Additional Instructions: Follow up with pulmonology and oncology as directed. [facility]errals: [facility] [Primary Care Provider] - 03/20/18 11:30 am
--- NOTE | 2018-03-15 07:48 | Internal Med Progress Note ---
Date of Encounter: 03/15/18 - Assessment and plan (1) Collapse of left lung Current Visit: Yes Status: Acute (2) COPD (chronic obstructive pulmonary disease) Current Visit: Yes Status: Chronic Qualifiers: COPD type: unspecified COPD Qualified Code(s): J44.9 - Chronic obstructive pulmonary disease, unspecified (3) Lung cancer Current Visit: No Status: Acute Qualifiers: Laterality: left Lung location: upper lobe of lung Qualified Code(s): C34.12 - Malignant neoplasm of upper lobe, left bronchus or lung (4) Hyperlipidemia Current Visit: Yes Status: Chronic Qualifiers: Hyperlipidemia type: mixed hyperlipidemia Qualified Code(s): E78.2 - Mixed hyperlipidemia (5) GERD (gastroesophageal reflux disease) Current Visit: Yes Status: Acute Qualifiers: Esophagitis presence: esophagitis presence not specified Qualified Code(s) : K21.9 - Gastro-esophageal reflux disease without esophagitis (6) DVT prophylaxis Current Visit: Yes Status: Acute - Time Spent With Patient Total time spent is greater than 50% in coordination of care (as documented) at patient's floor/unit and/or counseling patient: - Subjective Interval history: Mr. Ashton is an 82-year old male with a history of lung cancer who was admitted after chest CT showed atelectasis and partial left lung collapse. He underwent bronchoscopy today, during which a lung mass was found. Biopsy was not performed due to patient blood pressure during the procedure. He is planned for bronchoscopy with biopsy tomorrow under general anesthesia. He reports some hemoptysis following bronchoscopy. - Constitutional Vitals: Temp Pulse Resp BP Pulse Ox 97.7 F 66 16 123/70 97 03/15/18 05:42 03/15/18 05:42 03/15/18 05:42 03/15/18 05:42 03/15/18 05:42 General appearance: Present: A&O X 0 Internal Medicine: Result - Labs CBC & Chem 7: 03/15/18 03:03 03/15/18 03:03 Labs: Short CBC 03/15/18 Range/Units 03:03 WBC 4.0 L (4.3-11.1) K/mcL Hgb 11.7 L (12.9-16.9) g/dL Hct 35.8 L (37.5-50.1) % Plt Count 193 (140-400) K/mcL Neutrophils # 3.1 (1.6-8.9) K/mcL BMP 03/15/18 03:03 Sodium 133 L Potassium 3.9 Chloride 103 Carbon Dioxide 22 L BUN 17 Creatinine 0.88 Glucose 135 H Calcium 8.7 - ABG Interpretation ABG results: PT/INR, D-dimer PT 12.5 Seconds (9.4-12.1) H 03/14/18 08:34 - VTE Documentation of Mechanical Device: Intermittent pneumatic compression device Consult Discharge Plan - Plan [facility]errals: [facility] [Primary Care Provider] -
[2018-03-15] MEDS: Tiotropium 18 MCG inhalation IH SCH (08:11)
[2018-03-15] MEDS: Multivit/Ca/Min/Fe/FA 1 TAB TABLET PO SCH (09:03)
[2018-03-15] MEDS: Primidone 50 MG TABLET PO SCH (09:03)
[2018-03-15] MEDS: Aspirin Enteric Coated 81 MG Tablet PO SCH (09:03)
[2018-03-15] MEDS: Gabapentin 300 MG CAPSULE PO SCH (09:03)
[2018-03-15] MEDS: *HR* Acetylcysteine 20% 600 MG/3 ML ORAL SYRINGE PO SCH (09:03)
[2018-03-15] MEDS: predniSONE 20 MG TABLET PO SCH (09:03)
[2018-03-15] MEDS: Latanoprost 2.5 ML BOTTLE BOTH EYES SCH (09:03)
[2018-03-15] MEDS: CARBOXYMETHYLCELLULOSE SODIUM OP SCH ×2 (09:14→12:07)
[2018-03-15] MEDS ORDERED: *HR* FentaNYL (PF) 100 MCG/2 ML VIAL ONE (09:17)
[2018-03-15] MEDS ORDERED: Lidocaine -MPF 2% 2 ML VIAL ONE (09:18)
[2018-03-15] MEDS ORDERED: *HR* Succinylcholine 200 MG/10 ML VIAL IVP ONE (09:18)
[2018-03-15] MEDS ORDERED: *HR* Propofol 200 MG/20 ML VIAL IVP ONE (09:19)
[2018-03-15] MEDS ORDERED: Ondansetron 4 MG/2 ML VIAL ONE (09:24)
[2018-03-15] MEDS ORDERED: *HR* PHENYLEPHRINE 1,000 MCG/10 ML SYRINGE IVP ONE (09:24)
[2018-03-15] MEDS ORDERED: Dexamethasone 4 MG/ML VIAL ONE (09:24)
[2018-03-15] MEDS ORDERED: Lidocaine -MPF 4% 5 ML AMPUL ONE (09:28)
--- NOTE | 2018-03-15 09:36 | Anesthesia Evaluation PreOp ---
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: Denies Any Significant HX Other Medical History: GERD Anesthesia History: No Prior Anesthetic Complications Alcohol Use: none Drug use: none Medications and Allergies Acetaminophen [Non-Aspirin] 650 mg PO QID PRN 07/11/16 [History] Albuterol Sulfate [Albuterol Inhaler] 2 puff IH Q4H PRN 07/11/16 [History] Aspirin [Lo-Dose Aspirin EC] 81 mg PO DAILY 07/11/16 [History] Atorvastatin [Lipitor] 40 mg PO HS 07/11/16 [History] Brimonidine Tartrate [Alphagan P] 5 ml OP BID 07/11/16 [History] Carboxymethylcellulose Sodium [Refresh Celluvisc] 1 drop OP QID 07/11/16 [ History] Gabapentin [Neurontin] 300 mg PO BID 07/11/16 [History] Latanoprost [Xalatan] 1 drop OP DAILY 07/11/16 [History] Primidone [Mysoline] 100 mg PO BID 07/11/16 [History] Propranolol [Inderal] 10 mg PO BID PRN 07/11/16 [History] Terazosin [Hytrin] 2 mg PO HS 07/11/16 [History] Albuterol Neb [AccuNeb] 3 ml IH QID PRN 02/16/17 [History] Zolpidem [Ambien] 10 mg PO HS #30 tablet 07/06/17 [Rx] Multivit-Min/Iron Fum/Folic AC [Pdhzk-Vckqrqd-Lbyflwzp Tablet] 1 tab PO DAILY [History] Omeprazole [PriLOSEC] 20 mg PO BID #60 capsule. 09/29/17 [Rx] Peg 400/Hypromellose/Glycerin [Visine Tired Eye Relief Drop] 1 drop OP TID PRN 11/14/17 [History] Simethicone [Gas-X] 80 mg PO TID PRN 11/14/17 [History] Tiotropium [Spiriva] 18 mcg IH DAILY 03/13/18 [History] 3 Allergy/AdvReac Type Severity Reaction Status Date / Time budesonide Allergy Heartburn Verified 03/13/18 14:41 Sulfa (Sulfonamide AdvReac Intermediate Rash Verified 03/13/18 14:41 Antibiotics) acetaminophen [From Vicodin] AdvReac Nausea Verified 03/13/18 14:41 Formoterol AdvReac Heartburn Verified 03/13/18 14:41 hydrocodone [From Vicodin] AdvReac Nausea Verified 03/13/18 14:41 - Meds/Allergy Pre-op Review Medications Reviewed: Yes Allergies Reviewed: Yes Beta Blockers on Current Med List: No Anesthesia Results - Labs 03/15/18 03:03 03/15/18 03:03 - Imaging EKG: pending Anesthesia Exam Vital Signs/O2 Sat/Glucose, Most Current Temp Pulse Resp BP Pulse Ox 03/15/18 05:42 97.7 F 66 16 123/70 97 Height: 5'8 Weight: 144 lbs NPO (# of Hours): MN Pain Scale: 0 - HEENT Pupil (Motor): Pupils equal, EOMI Mallampati: II Oral Opening: Greater than 3 - [employer] OPERATOR LOC: Oriented [employer] OPERATOR Motor: Normal RUE, Normal LUE, Normal RLE, Normal LLE, Normal Face [employer] OPERATOR Sensory: Normal: RUE, LUE, RLE, LLE, Face - Cardiac Rhythm: Regular Murmur: None JVD: No Carotid Bruit: No - Pulmonary Breath Sounds: bilateral Clear Respiratory Effort: Symmetrical Anesthesia Assess/Plan ASA Score: 3 (COPD) Modified [place] Scale for Level of Consciousness: Cooperative, oriented, and tranquil Anesthetic Plan: General Monitoring Plan: Standard Monitors Recovery Plan: PACU (Discussed GA, agrees to proceed)
[2018-03-15] MEDS ORDERED: *HR* EPINEPHrine 1 MG/10 ML SYRINGE ONE (11:36)
[2018-03-15 11:46] VITALS: BP 117/75
--- NOTE | 2018-03-15 11:57 | Anesthesia Evaluation Post Op ---
Date of Encounter: 03/15/18 Time of Encounter: 12:00 - Vital Signs Vital Signs: Vital Signs/O2 Sat/Glucose, Most Current Temp Pulse Resp BP Pulse Ox 03/15/18 11:46 98.6 F 73 18 117/75 94 03/15/18 11:36 79 11 112/63 93 03/15/18 11:26 75 17 120/69 95 03/15/18 11:16 100.0 F H 84 24 119/73 99 03/15/18 10:20 69 18 134/78 95 - Lungs Lungs: Clear Ascult./Percussion - Airway Airway: Non-obstructed - Cardiovascular Regular Rate - Mental Status Mental Status: Alert & Oriented, Answers Appropriately - Pain Pain Scale: 0 - Nausea Vomiting Nausea Vomiting: Not Present - Hydration Hydration: Ice chips - Discharge PostOp Status: Transfer Patient to floor
[2018-03-15] MEDS: Ringers Solution, Lactated 1,000 ML IVC SCH (12:08)
--- NOTE | 2018-03-15 13:15 | Discharge Summary ---
<Franci Macario N - Last Filed: 03/15/18 17:42> - NOTES TO OUTPATIENT PROVIDER Notes to Outpatient Provider: Mr. Ashton was admitted following chest CT that showed partial left lung collapse. Initial bronchoscopy allowed removal of mucus plug, but lung mass was also found. Biopsy was not taken at that time due to patient blood pressure under sedation. Patient was kept overnight, and bronchoscopy was performed under general anesthesia. 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 Pulmonology has communicated with oncology, where the patient has been instructed to follow-up for further work-up and treatment. Orders not resulted at time of discharge: Pending orders 03/14/18 14:46 Culture,Sputum with Gram Stain [RM] Routine 03/15/18 AFB Culture, Respiratory [TB] Routine Cell Count w Diff, Body Fluid [BF] Routine Culture,Respiratory [RM] Routine Fungal Culture [MYC] Routine 03/15/18 11:06 Cytology [PTH] Routine 03/15/18 11:11 AFB Culture, Respiratory [TB] Routine Culture,Respiratory [RM] Routine Fungal Culture [MYC] Routine Surgical Pathology [PTH] Routine Date of Encounter: 03/15/18 Time of Encounter: 13:48 - Discharge Diagnosis (1) Collapse of left lung Priority: Primary Status: Acute (2) COPD (chronic obstructive pulmonary disease) Priority: Secondary Status: Chronic Qualifiers: COPD type: unspecified COPD Qualified Code(s): J44.9 - Chronic obstructive pulmonary disease, unspecified (3) Lung cancer Priority: Secondary Status: Acute Qualifiers: Laterality: left Lung location: upper lobe of lung Qualified Code(s): C34.12 - Malignant neoplasm of upper lobe, left bronchus or lung (4) Hyperlipidemia Priority: Secondary Status: Chronic Qualifiers: Hyperlipidemia type: mixed hyperlipidemia Qualified Code(s): E78.2 - Mixed hyperlipidemia (5) GERD (gastroesophageal reflux disease) Priority: Secondary Status: Acute Qualifiers: Esophagitis presence: esophagitis presence not specified Qualified Code(s) : K21.9 - Gastro-esophageal reflux disease without esophagitis (6) DVT prophylaxis Priority: Secondary Status: Acute Hospital course: Mr. Ashton is a 82 year old male who was presented to the ED following and abnormal chest CT demonstrated partial collapse of the left lung. He was admitted pending pulmonology consultation. Bronchoscopy was recommended due to suspected mucus plug, and azithromycin was prescribed. During bronchoscopy, the mucus plug was removed; however, an unknown lung mass was found. Biopsy and bronchoalveolar lavage were not completed due as patient was not under general anesthesia and blood pressure was of concern. Due to inability to sample lung mass, patient was kept overnight with NPO status. Bronchoscopy was repeated the following day under general anesthesia. Biopsy taken at that time was positive for [id number] lung cancer, which will be further evaluated on an outpatient basis. Pulmonology has been in contact with patient's established oncologist, and patient was instructed to follow-up with that provider. At discharge, patient was provided with prescriptions for antibiotics (azithromycin), duonebs, symbicort, N-acetylcystine, and a two-week taper of oral steroids according to pulmonology recommendations. - Time Spent with Patient Total time spent providing and/or coordinating discharge services: - Discharge Medications Prescriptions: Ipratropium/Albuterol Neb [Duoneb] 3 ml IH Q4HR 30 Days #1 pack Acetylcysteine [H-Zyizdc-m-Cysteine] 600 mg PO BID #60 capsule Azithromycin [Azithromycin 6-Tab Pack] 250 mg PO PER PKG DI #6 tab Budesonide/Formoterol 160/4.5 [Symbicort 160/4.5] 2 puff IH BIDR #1 hfa.aer.ad predniSONE [PredniSONE] 10 mg PO DAILY #45 tablet Home Medications: Acetaminophen [Non-Aspirin] 650 mg PO QID PRN 07/11/16 [History] Albuterol Sulfate [Albuterol Inhaler] 2 puff IH Q4H PRN 07/11/16 [History] Aspirin [Lo-Dose Aspirin EC] 81 mg PO DAILY 07/11/16 [History] Atorvastatin [Lipitor] 40 mg PO HS 07/11/16 [History] Brimonidine Tartrate [Alphagan P] 5 ml OP BID 07/11/16 [History] Carboxymethylcellulose Sodium [Refresh Celluvisc] 1 drop OP QID 07/11/16 [ History] Gabapentin [Neurontin] 300 mg PO BID 07/11/16 [History] Latanoprost [Xalatan] 1 drop OP DAILY 07/11/16 [History] Primidone [Mysoline] 100 mg PO BID 07/11/16 [History] Propranolol [Inderal] 10 mg PO BID PRN 07/11/16 [History] Terazosin [Hytrin] 2 mg PO HS 07/11/16 [History] Albuterol Neb [AccuNeb] 3 ml IH QID PRN 02/16/17 [History] Zolpidem [Ambien] 10 mg PO HS #30 tablet 07/06/17 [Rx] Multivit-Min/Iron Fum/Folic AC [Zjueq-Tojgsac-Dduspfpa Tablet] 1 tab PO DAILY [History] Omeprazole [PriLOSEC] 20 mg PO BID #60 capsule. 09/29/17 [Rx] Peg 400/Hypromellose/Glycerin [Visine Tired Eye Relief Drop] 1 drop OP TID PRN 11/14/17 [History] Simethicone [Gas-X] 80 mg PO TID PRN 11/14/17 [History] Tiotropium [Spiriva] 18 mcg IH DAILY 03/13/18 [History] Acetylcysteine [T-Puwqbt-p-Cysteine] 600 mg PO BID #60 capsule 03/15/18 [Rx] Azithromycin [Azithromycin 6-Tab Pack] 250 mg PO PER PKG DI #6 tab 03/15/18 [Rx] Budesonide/Formoterol 160/4.5 [Symbicort 160/4.5] 2 puff IH BIDR #1 hfa.aer.ad 03/15/18 [Rx] Ipratropium/Albuterol Neb [Duoneb] 3 ml IH Q4HR 30 Days #1 pack 03/15/18 [Rx] predniSONE [PredniSONE] 10 mg PO DAILY #45 tablet 03/15/18 [Rx] Allergies/Adverse Reactions: 3 Allergy/AdvReac Type Severity Reaction Status Date / Time budesonide Allergy Heartburn Verified 03/13/18 14:41 Sulfa (Sulfonamide AdvReac Intermediate Rash Verified 03/13/18 14:41 Antibiotics) acetaminophen [From Vicodin] AdvReac Nausea Verified 03/13/18 14:41 Formoterol AdvReac Heartburn Verified 03/13/18 14:41 hydrocodone [From Vicodin] AdvReac Nausea Verified 03/13/18 14:41 Date of admission: 03/13/18 17:39 [facility] care physician: [facility] Consults: 03/13/18 17:40 Consult to Pulmonology [CONS] Routine Consulting Provider: Pulm Crit Care & Sleep Lu Reason for Consult: collapsed left lung with atelectasis Call Completed: Yes 03/13/18 20:33 Consult to Nutrition [CONS] Routine Comment: Consulting Provider: NUTRITION Reason for Dietary Consult: Other Other:: Patient states 20LB weight loss due to no appetite 03/13/18 20:37 Consult to Physical Therapy [CONS] Routine Comment: Evaluate, develop and implement POC Reason for Consult: Generalized weakness Does patient have active BEDREST order?: No Is patient medically & hemodynamically stable?: Yes Patient assessed for mobility or mobilized this visit?: No Discharging clinician: Franci Bedolla date of discharge: 03/15/18 - Constitutional Vitals: Temp Pulse Resp BP Pulse Ox 98.6 F 73 18 117/75 94 03/15/18 11:46 03/15/18 11:46 03/15/18 11:46 03/15/18 11:46 03/15/18 11:46 General appearance: Present: A&O X 0 Exam: Patient is awake and alert. He is conversational and does not appear to be in acute distress. - Head Additional comments: Atraumatic and normocephalic. - Respiratory Additional comments: Diffuse wheezes bilaterally. - Cardiovascular Additional comments: Regular rate and rhythm. No gallops, murmurs, or rubs. - Extremities Exam Additional comments: No swelling, cyanosis, or edema. Patient move all extremities without difficulty. - Patient Status Disposition: Home, Self-Care Condition: Good Functional capacity at discharge: independent ambulation Overall status at discharge: patient is progressing back to baseline - Discharge Instructions Instructions: Prednisone (By mouth), Azithromycin (By mouth), Acute Respiratory Distress Syndrome (DC) Follow Up With: Arely Pearson MD [Partnered Physician] - 03/29/18 8:45 am [place],PCP [Primary Care Provider] - 03/20/18 11:30 am Additional Instructions: Take antibiotic (azithromycin) as prescribed. Take oral steroids as directed: 50mg for 3 days, then take 40mg for 3 days, then take 30mg for 3 days, then take 20mg for 3 days, then take 10mg for 3 days. Take N-acetylcysteine 600mg two times per day. Use inhaler and nebulizer as directed. Take antacids as needed for heartburn. Follow up with pulmonology and oncology as directed. Continue home medication as prescribed. Return to the emergency department should symptoms recur or if new concerns arise. - Diet and Activity Activity: resume usual activities as tolerated Diet: regular diet - VTE Documentation of Mechanical Device: Intermittent pneumatic compression device <Reece Bustos - Last Filed: 03/15/18 19:37> Orders not resulted at time of discharge: Pending orders 03/14/18 14:46 Culture,Sputum with Gram Stain [RM] Routine 03/15/18 AFB Culture, Respiratory [TB] Routine AFB Smear [TB] Routine Culture,Respiratory [RM] Routine Fungal Culture [MYC] Routine Pathologist Review, Body Fluid [BF] Routine 03/15/18 11:06 Cytology [PTH] Routine 03/15/18 11:11 AFB Culture, Respiratory [TB] Routine Culture,Respiratory [RM] Routine Fungal Culture [MYC] Routine Surgical Pathology [PTH] Routine Date of Encounter: 03/15/18 - Discharge Diagnosis (1) Collapse of left lung Status: Acute (2) Lung cancer Status: Acute Qualifiers: Laterality: left Lung location: upper lobe of lung Qualified Code(s): C34.12 - Malignant neoplasm of upper lobe, left bronchus or lung (3) COPD (chronic obstructive pulmonary disease) Status: Chronic Qualifiers: COPD type: unspecified COPD Qualified Code(s): J44.9 - Chronic obstructive pulmonary disease, unspecified (4) Hyperlipidemia Status: Chronic Qualifiers: Hyperlipidemia type: mixed hyperlipidemia Qualified Code(s): E78.2 - Mixed hyperlipidemia (5) GERD (gastroesophageal reflux disease) Status: Chronic Qualifiers: Esophagitis presence: esophagitis presence not specified Qualified Code(s) : K21.9 - Gastro-esophageal reflux disease without esophagitis (6) DVT prophylaxis Status: Acute (7) Tobacco abuse Priority: Secondary Status: Chronic (8) Mucus plugging of bronchi Priority: Secondary Status: Acute (9) COPD exacerbation Priority: Secondary Status: Acute Hospital course: Mr. Ashton is a 82 year old male - Time Spent with Patient Total time spent providing and/or coordinating discharge services: 28min Date of admission: 03/13/18 17:39 [facility] physician[facility] Consults: 03/13/18 17:40 Consult to Pulmonology [CONS] Routine Consulting Provider: Pulm Crit Care & Sleep Lu Reason for Consult: collapsed left lung with atelectasis Call Completed: Yes 03/13/18 20:33 Consult to Nutrition [CONS] Routine Comment: Consulting Provider: NUTRITION Reason for Dietary Consult: Other Other:: Patient states 20LB weight loss due to no appetite 03/13/18 20:37 Consult to Physical Therapy [CONS] Routine Comment: Evaluate, develop and implement POC Reason for Consult: Generalized weakness Does patient have active BEDREST order?: No Is patient medically & hemodynamically stable?: Yes Patient assessed for mobility or mobilized this visit?: No - Constitutional Vitals: Temp Pulse Resp BP Pulse Ox 98.6 F 73 18 117/75 94 03/15/18 11:46 03/15/18 11:46 03/15/18 11:46 03/15/18 11:46 03/15/18 11:46 - Attending Attestation I examined this patient and my medical decision-making was reviewed with the Resident Physician on 03/15/18. I agree with the documented findings, disposition and treatment plan as described except to the extent set forth below. Mr Ashton has been admitted for atelectasis due to mucus plug. He was found to have lesion positive for recurrent lung cancer. Currently he is afebrile and ready for discharge home. Exam alert Comfortable Mucus membranes dry Heart reg Wheeze heard Plan D/C home today
[2018-03-15 13:16] LABS: Appearance of Body Fluid Cloudy (Clear); Volume of Body Fluid 15 mL
--- NOTE | 2018-03-16 08:14 | Electrocardiograph Report ---
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
== END 2018-03-15 15:48 | disposition home or self-care (01) | DRG 166 ==
LOC: 2NENU 14:36 → EMEROO 14:36 → OBSVTOIN 17:39 → SUATTDRO 17:39 → 2NENU 18:47
PROVIDERS: ADMIT Internal Medicine; ATTEND Internal Medicine
PROC: ENDOBRF (2018-03-14 11:00)

== ENCOUNTER 2018-12-04 00:18 | Inpatient (IN) ==
[2018-12-04] MEDS ORDERED: Naloxone 0.4 MG/ML INJ IVP PRN (03:27)
[2018-12-04] MEDS ORDERED: *HR* Promethazine 25 MG/ML VIAL IVP PRN (03:27)
--- NOTE | 2018-12-04 03:46 | Internal Med History&Physical ---
Date of Encounter: 12/04/18 Time of Encounter: 03:10 Internal Medicine - H&P: HPI Chief complaint: SOB; palpitations; lightheadedness Admitted From: Hospital to Hospital Transfer Plans for Post Hospital Care: Home History of present illness: Mr. Ashton is a 83 year old male who presents to [place] in transfer from [facility]. He presented there earlier with complaints of lightheadedness, dizziness, low blood pressure, and palpitations. He was found to be in a tachycardic rhythm, MAT versus SVT, and required cardioversion due to unstable tachyarrhythmia. He was stabilized and had routine labs and imaging performed thereafter. He was then transferred to [facility] for ongoing care and workup. Upon my assessment of the patient, patient states he has never had any cardiac problems before. He never had a heart attack or any dysrhythmias. He states over the last 2-3 days, has become increasingly weak, lightheaded, short of breath, and had racing heartbeats and palpitations. He does note that he has been having some blood-tinged sputum and occasional gross hemoptysis over the last 2-3 weeks. He is currently being treated for lung cancer with radiation and chemotherapy. He has had productive cough with sputum, wheezing, subjective fevers, poor appetite, nausea, and occasional vomiting. He denies any chills, body aches, or myalgias. Flu testing was negative at [facility]. CODE STATUS was reviewed with patient and confirmed to be DNR CC arrest. Past Med Surg Social Fam HX - Past Medical History Attestation: Yes The following information was validated with the patient. Source: patient, old records reviewed, other ([facility] records) Medical history: arthritis, asthma, cancer, COPD, GERD, glaucoma, hyperlipidemia Psychiatric history: no psych history - Past Surgical History Surgical History: cholecystectomy, herniorrhaphy Additional surgical history: Gall bladder removal, hernia repair, cancer removal right eye, tumor removal on neck - Social History Smoking Status: Current every day smoker Packs per day: 0.5 Smokeless Tobacco Status: No Alcohol use: none Drug use: none Current living situation: Home, With Family Activity Level: Independent ambulation Recent Out of Country Travel Within the Last 8 Weeks: No - Family History Mother Adopted: No Family Member Ethnicity: Non- Living Status: Hx Family Cardiac Disorders: Yes ([place]) Hx Family Respiratory Disorders: No Hx Family Cancer: No Hx Family GI Disorders: No Hx Family Endocrine Disorder: No Hx Family Neuromuscular Disorders: No Hx Family Neurologic Disorders: No Hx Family HEENT Disorders: No Hx Family Autoimmune Disorders: No Internal Medicine - H&P: Meds Albuterol Sulfate [Albuterol Inhaler] 2 puff IH Q4H PRN 07/11/16 [History] Aspirin [Lo-Dose Aspirin EC] 81 mg PO DAILY 07/11/16 [History] Atorvastatin [Lipitor] 40 mg PO HS 07/11/16 [History] Brimonidine Tartrate [Alphagan P] 5 ml OP BID 07/11/16 [History] Carboxymethylcellulose Sodium [Refresh Celluvisc] 1 drop OP QID 07/11/16 [Histor y] Gabapentin [Neurontin] 300 mg PO BID 07/11/16 [History] Latanoprost [Xalatan] 1 drop OP DAILY 07/11/16 [History] Primidone [Mysoline] 100 mg PO BID 07/11/16 [History] Propranolol [Inderal] 10 mg PO BID PRN 07/11/16 [History] Terazosin [Hytrin] 2 mg PO HS 07/11/16 [History] Albuterol Neb [AccuNeb] 3 ml IH QID PRN 02/16/17 [History] Zolpidem [Ambien] 10 mg PO HS #30 tablet 07/06/17 [Rx] Multivit-Min/Iron Fum/Folic AC [Zkfaa-Zyzuyzd-Uxyvrnfl Tablet] 1 tab PO DAILY 08/16/17 [History] Omeprazole [PriLOSEC] 20 mg PO BID #60 capsule. 09/29/17 [Rx] Peg 400/Hypromellose/Glycerin [Visine Tired Eye Relief Drop] 1 drop OP TID PRN 11/14/17 [History] Tiotropium [Spiriva] 18 mcg IH DAILY 03/13/18 [History] Acetylcysteine [Z-Nqbxkk-x-Cysteine] 600 mg PO BID #60 capsule 03/15/18 [Rx] Budesonide/Formoterol 160/4.5 [Symbicort 160/4.5] 2 puff IH BIDR #1 hfa.aer.ad 03/15/18 [Rx] Ipratropium/Albuterol Neb [Duoneb] 3 ml IH Q4HR 30 Days #1 pack 03/15/18 [Rx] Simethicone [Bicarsim] 80 mg PO TID PRN 04/26/18 [History] GuaiFENesin/Codeine [ROBITUSSIN w/CODEINE] 5 ml PO Q6HR PRN 12 Days #236 liquid 08/03/18 [Rx] Calcium Carbonate/Vitamin D3 [Calcium 1,000 + D3 Caplet] 1 each PO BID #60 tablet 10/02/18 [Rx] Hydrocortisone 2.5% CREAM [Cortaid] 1 appl TP BID PRN #1 tube 10/30/18 [Rx] Leg Brace [Knee Brace] 1 each MC AD #1 each 10/30/18 [Rx] Azithromycin [Azithromycin 6-Tab Pack] 250 mg PO PER PKG DI #6 tab 11/24/18 [Rx] predniSONE [Prednisone] 50 mg PO DAILY #5 tablet 11/24/18 [Rx] Magic Mouthwash [Magic Mouthwash BLM] 10 ml PO QID PRN #240 ml 11/27/18 [Rx] Allergy/AdvReac Type Severity Reaction Status Date / Time budesonide Allergy Heartburn Verified 12/04/18 02:35 Sulfa (Sulfonamide AdvReac Intermediate Rash Verified 12/04/18 02:35 Antibiotics) acetaminophen [From Vicodin] AdvReac Nausea Verified 12/04/18 02:35 Formoterol AdvReac Heartburn Verified 12/04/18 02:35 hydrocodone [From Vicodin] AdvReac Nausea Verified 12/04/18 02:35 - Constitutional Constitutional: fatigue, fever(s), weakness, no chills, no night sweats - EENT Eyes: no blurry vision, no change in vision Ears: no ear pain, no tinnitus Nose, mouth and throat: no nasal congestion, no sinus pressure, no sore throat - Cardiovascular Cardiovascular ROS IM: dyspnea, dyspnea on exertion, irregular heart rhythm, lightheadedness, palpitations, no chest pain, no edema, no orthopnea, no paroxysmal nocturnal dyspnea, no syncope - Respiratory Respiratory: cough, dyspnea, hemoptysis, wheezing, chest congestion, change in phlegm color, pain with cough, no excessive phlegm production - Gastrointestinal Gastrointestinal: no abdominal pain, no diarrhea, no hematemesis, no hematochezia, no melena, no vomiting - Genitourinary Genitourinary ROS male: no dysuria, no flank pain, no hematuria - Musculoskeletal Musculoskeletal ROS IM: arthralgias, no back pain, no muscle cramps, no myalgias - Integumentary Integumentary IM: no rash, no jaundice - Neurological Neurological ROS: no disequilibrium, no dizziness, no focal weakness, no frequent falls, no headache(s) - Psychiatric Psychiatric: no anxiety, no depression - Endocrine Endocrine IM: no cold intolerance, no heat intolerance, no polydipsia, no polyuria - Hematologic/Lymphatic Hematologic/Lymphatic: easy bruising - Allergic/Immunologic Allergic/Immunologic: wheezing, no GI upset with certain foods - Constitutional Vitals: Temp Pulse Resp BP Pulse Ox 98.5 F 99 18 150/88 93 12/04/18 02:38 12/04/18 02:38 12/04/18 02:38 12/04/18 02:38 12/04/18 02:38 General appearance: Present: cooperative, mild distress, pleasant, no acute distress, answers questions appropriately Exam: audibly wheezing - Head Head exam: Present: normal inspection - Eye Eye exam: Present: EOMI, PERRL. Absent: scleral icterus Pupils: Present: normal accommodation - ENT ENT exam: Present: mucous membranes dry, normal exam, normal oropharynx - Neck Neck exam general surgery: Present: full ROM, supple, trachea midline. Absent: tenderness, nuchal rigidity, thyromegaly - Respiratory Respiratory exam: Present: prolonged expiratory phase, respiratory distress (mild), rhonchi, wheezes, tachypnea. Absent: chest wall tenderness, rales - Cardiovascular Cardiovascular exam: Present: distant heart sounds, +S1, +S2. Absent: diastolic murmur, systolic murmur, tachycardia Additional comments: + ectopic beats noted - GI/Abdominal GI/Abdominal exam: Present: normal bowel sounds, soft. Absent: guarding, hepatomegaly, mass, rebound, splenomegaly, tenderness - Extremities Exam Extremities exam: Present: normal capillary refill, warm, radial pulses palpable and symmetrical. Absent: calf tenderness, joint swelling, pedal edema, tenderness - Back Exam Back exam: Absent: CVA tenderness (L), CVA tenderness (R) - Neurological Exam Neurological exam: Present: alert, CN II-XII intact, oriented X3, no focal deficits, strengths equal and symetr throughout - Skin Skin exam: Present: dry, intact, warm Internal Med - H&P Results - Labs Labs: I reviewed the labs from [facility] and include the following: Influenza A and B testing negative Sodium 139 Potassium 3.8 Chloride 103 CO2 27 BUN 23 Glucose 133 Creatinine 1.24 Magnesium 1.7 Phosphorous 3.7 Lactic acid 1.0 WBC 8.8 Hemoglobin 13.0 Hematocrit 44.[address] Chest -- No PE - EKG Data -: EKG Interpreted by Myself - EKG Data Prior EKG available for review: no EKG comments: 12/04/18 03:57 Suspect Atrial Fib/Flutter pattern w RVR (Angel Luis EKG) - Assessment and Plan (1) Hemoptysis Current Visit: Yes Status: Acute Assessment and plan: 1. Monitor closely for any gross hemoptysis. 2. Treat underlying AECOPD. 3. Oxygen as needed for support. 4. Consult Oncology. May need pulmonary consult if he develops any significant hemoptysis. 5. Will order CT chest. (2) Atrial fib/flutter, transient Current Visit: Yes Status: Acute Assessment and plan: 1. Patient developed hemodynamically unstable Atrial fib/flutter w RVR. 2. Patient cardioverted at [facility], currently sinus w PVC's. 3. Will order labs and correct electrolytes as necessary. 4. Will order BB and monitor on telemetry. 5. Will order ECHO and trend troponins. (3) COPD exacerbation Current Visit: Yes Status: Acute Assessment and plan: 1. Will order sputum culture and place on antibotics. 2. Will order steroids. 3. Will order Xopenex aerosols in place of other nebs given dysrhythmia. (4) DVT prophylaxis Current Visit: No Status: Acute Assessment and plan: 1. EPCD'S. 2. No anticoagulation due to hemoptysis. - Time Spent With Patient Total time spent is greater than 50% in coordination of care (as documented) at patient's floor/unit and/or counseling patient:
[2018-12-04] MEDS ORDERED: Isovue-370 500 ML BOTTLE IVP ONE ×2 (04:04→07:22)
[2018-12-04] MEDS: Levofloxacin 500 MG/100 ML 500 MG/100 ML BAG IVPB SCH (04:16)
[2018-12-04 04:42] LABS: Basophils # 0.1 K/mcL (0.0-0.2); Basophils % 0.8 %; Eosinophils # 0.1 K/mcL (0.0-0.6); Eosinophils % 0.7 %; Hematocrit 36.1 % (37.5-50.1); Hemoglobin 11.8 g/dL (12.9-16.9); Immature Granulocytes % 4.3 % (0-4); Lymphocytes # 0.5 K/mcL (0.6-4.6); Lymphocytes % 5.3 %; Mean Corpuscular HGB Conc 32.7 g/dL (31.6-35.5); Mean Corpuscular Hemoglobin 29.8 pg (28.0-33.3); Mean Corpuscular Volume 91.2 fL (83.0-100.0); Monocytes # 0.2 K/mcL (0.0-1.3); Monocytes % 1.8 %; Neutrophils # 7.5 K/mcL (1.6-8.9); Platelet Count 183 K/mcL (140-400); Red Blood Count 3.96 M/mcL (4.19-5.50); Red Cell Distribution Width 15.4 % (11.5-14.5); Segmented Neutrophils % 87.1 %
[2018-12-04 04:49] LABS: INR 1.1
[2018-12-04 05:01] LABS: Alanine Aminotransferase 8 Units/L (7-52); Albumin 3.5 g/dL (3.5-5.7); Albumin/Globulin Ratio 1.3 (1.1-2.2); Alkaline Phosphatase 80 Units/L (34-104); Aspartate Amino Transferase 13 Units/L (13-39); BUN/Creatinine Ratio 19 (6-26); Bilirubin,Total 0.4 mg/dL (0.3-1.0); Blood Urea Nitrogen 19 mg/dL (8-23); Calcium 8.2 mg/dL (8.6-10.3); Carbon Dioxide 25 mEq/L (23-29); Chloride 105 mEq/L (98-107); Globulin 2.7 g/dL (2.4-3.5); Glucose 142 mg/dL (70-105); Magnesium 1.8 mg/dL (1.6-2.6); Osmolality,Calculated 289 (280-300); Potassium 4.2 mEq/L (3.5-5.1); Sodium 137 mEq/L (136-145); Total Protein 6.2 g/dL (6.4-8.9); eGFR For Non-African Americans > 60 (> 60)
[2018-12-04] MEDS ORDERED: methylPREDNISolone 125 MG/2 ML VIAL IVP SCH (08:00)
[2018-12-04] MEDS: Levalbuterol Neb 1.25 MG/3 ML IH PRN ×4 (08:18→23:38)
--- NOTE | 2018-12-04 10:31 | Electrocardiograph Report ---
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
--- NOTE | 2018-12-04 11:13 | Internal Med Progress Note ---
Hospitalist Progress Note - Encounter Date of Encounter: 12/04/18 Time of Encounter: 11:04 - Subjective Interval History: PT feels better than yesterday, pt is aware he has mets to the bone, doesn't want any machines or resustations. Pt stated no further hemoptyiss over night. - Exam Vitals: Temp Pulse Resp BP Pulse Ox 98.3 F 82 19 133/83 95 12/04/18 07:13 12/04/18 07:13 12/04/18 07:13 12/04/18 07:13 12/04/18 07:13 Exam: Gen: A+O x3 heart: s1, s2, rrr lungs: still has wheezing and sounds very tight Abd: soft, NT/ND, BS + all 4 Q LE: no edema - Summary of Assessment and Plan Summary of Assessment and Plan: (1) Hemoptysis Current Visit: Yes Status: Acute Assessment and plan: no further hemotypsis over night, likely due to lung cancer or bronchitis hgb stable --wiill cont IV solumedrol --also repeat CBCs. (2) Atrial fib/flutter, transient Current Visit: Yes Status: Acute Assessment and plan: 1. Patient developed hemodynamically unstable Atrial fib/flutter w RVR. 2. Patient cardioverted at [facility], currently sinus w PVC's. 3. Will order labs and correct electrolytes as necessary. cont beta blcoker, pt does not have large PE on CT exam (3) COPD exacerbation Current Visit: Yes Status: Acute Assessment and plan: 1. Will order sputum culture and place on antibotics. --cont IV solumedrol 80Q8 --will also cont xeponex --pt is feeing better 4) Torp elevation: likely from Afib will get repeat EKG 5) dispo: pt lives home with will get PT/OT to see the pt as well time: 30 min - Time Spent with Patient Total time spent is greater than 50% in coordination of care (as documented) at patient's floor/unit and/or counseling patient: Internal Medicine: Result - Labs CBC & Chem 7: 12/04/18 04:02 12/04/18 04:02 Labs: Short CBC 12/04/18 Range/Units 04:02 WBC 8.6 (4.3-11.1) K/mcL Hgb 11.8 L (12.9-16.9) g/dL Hct 36.1 L (37.5-50.1) % Plt Count 183 (140-400) K/mcL Neutrophils # 7.5 (1.6-8.9) K/mcL BMP 12/04/18 04:02 Sodium 137 Potassium 4.2 Chloride 105 Carbon Dioxide 25 BUN 19 Creatinine 0.98 Glucose 142 H Calcium 8.2 L Cardiac Enzymes 12/04/18 12/04/18 Range/Units 04:02 09:36 Troponin I 0.17 H* 0.15 H* (< 0.04) ng/mL Liver Function 12/04/18 Range/Units 04:02 Total Bilirubin 0.4 (0.3-1.0) mg/dL AST 13 (13-39) Units/L ALT 8 (7-52) Units/L Alkaline Phosphatase 80 (34-104) Units/L Albumin 3.5 (3.5-5.7) g/dL - ABG Interpretation ABG results: PT/INR, D-dimer PT 12.0 Seconds (9.4-12.1) 12/04/18 04:02 - Impressions Impressions Chest CT 12/04/18 07:22 IMPRESSION: 1. Examination is of low to moderate diagnostic quality to the level of the proximal segmental branches. No evidence of pulmonary embolus to that level; however, in the more distal segmental branches of the right lower lobe, there is relative hypodensity which may be due to mixing artifact versus thrombus. This exam is not diagnostic for that portion of the pulmonary artery. 2. Chronic mediastinal and hilar lymphadenopathy with collapse and consolidation of the left upper lobe. This is in keeping with patient's known malignancy. 3. Persistent small left pleural effusion, suspicious for malignant effusion. 4. Persistent small pericardial effusion. 5. Enhancing soft tissue mass, 2.7 cm in the left infraspinatus muscle, highly suspicious for a soft tissue metastasis. 6. Approximately 1.1 cm left adrenal nodule, suspicious for metastasis given associated findings. D/ / 12/04/2018 09:06:55 Simón Chilel MD / mouna Interpreting Provider: Simón Chilel MD Consult Discharge Plan - Plan [facility]errals: [facility] [Primary Care Provider] -
[2018-12-04] MEDS: Budesonide Neb 0.25 MG/2 ML IH SCH ×2 (11:39→19:38)
[2018-12-04] MEDS: Levalbuterol 1 PUFF INHALER IH SCH ×4 (11:40→23:43)
[2018-12-04] MEDS: Magic Mouthwash 10 ML UD Cup PO SCH (16:09)
[2018-12-04] MEDS: MethylPREDNISolone 40 MG/ML VIAL IVP SCH ×2 (16:11→23:52)
--- NOTE | 2018-12-04 17:29 | Oncology Inp Consult Note ---
<June Elkins L - Last Filed: 12/04/18 17:51> Date of Encounter: 12/04/18 Time of Encounter: 13:00 Assessment and Plan (1) Hemoptysis Status: Acute Assessment and plan: Persistent hemoptysis x4-6 weeks Reports about 10 episodes of small amounts of pink tinged sputum daily He presented to [facility] ED with report of hemoptysis earlier this month, CTA at that time was negative for PE, he was discharged home with azithromycin and prednisone. CT of the chest on presentation reveals Chronic mediastinal and hilar lymphadenopathy with collapse and consolidation of the left upper lobe, Persistent small left pleural effusion, Persistent small pericardial effusion, new enhancing soft tissue mass, 2.7 cm in the left infraspinatus muscle, Approximately 1.1 cm left adrenal nodule. 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 Refer to HPI for full treatment summary Most recent treatment includes nivolumab, he is status post cycle #3 on 06/25/2018 and developed general decline in performance status which patient felt attributable to immunotherapy and elected not to pursue further treatment. He has been without systemic treatment since this time. He continues with monthly Xgeva with history of bone metastasis. Plan: CT imaging as listed above does note concern for new enhancing soft tissue mass in the left infraspinatus muscle, this may be concerning for progressive metastatic disease. He does endorse some pain to his left posterior shoulder that is worse at night. May consider palliative radiation as outpatient following PET/CT. Patient is currently not on any treatment but states he may consider treatment options if warranted. Recommend outpatient PET CT and follow-up with Dr. Chiu Qualifiers: Laterality: unspecified laterality Qualified Code(s): C34.90 - Malignant neoplasm of unspecified part of unspecified bronchus or lung - Data of Consult Patient: known to practice within the last 3 years Consult date: 12/04/18 Requesting Physician: Niraj Decker MD Primary [facility] Provider[facility] - Consult Narrative Reason for consult: Pleomorphic carcinoma History of present illness: Mr. Ashton is an 83 year old male with Stage IV pleomorphic carcinoma. Initially diagnosed with stage IIA and completed concurrent chemoradiation with carbo Taxol followed by 2 cycles of consolidation chemotherapy completed 07/06/2017. He had CT imaging in March 2018 and was noted to have complete collapse and consolidation of the left upper lobe. PET scan revealed evidence of metastatic disease to right adrenal and evidence of bone metastasis. He underwent bronchoscopy in March 2018 with pathology revealing pleomorphic carcinoma. Prior therapy also includes nivolumab, he is status post cycle #3 on 06/25/2018 and developed general decline in performance status which patient felt attributable to immunotherapy and elected not to pursue further treatment. He has been without systemic treatment since this time. He did develop a 3 mm focus of enhancement in the cortex of the posterior left frontal lobe in May 2018 that was treated with CyberKnife. Repeat brain MRI in August 2018 revealed a new tiny focus of enhancement in the right posterior frontal parietal junction, he was referred for CyberKnife treatment, imaging was then further reviewed by radiation oncology in [place] and felt to be the same lesion in which was already treated. He continues with monthly Xgeva with history of bone metastasis. Patient presented to outside hospital with complaints of lightheadedness, dizziness, low blood pressure, and palpitations. He was found to be in a tachycardic rhythm, MAT versus SVT, and required cardioversion due to unstable tachyarrhythmia. He was then transferred to [facility]. Review of systems is positive for history of productive cough with hemoptysis ongoing for the past 4- 6 weeks, wheezing, subjective fevers, poor appetite. He presented to [facility] ED with report of hemoptysis earlier this month, CTA at that time was negative for PE, he was discharged home with azithromycin and prednisone. We are consulted for further workup and relation to his continued hemoptysis. Past Med Surg Social Fam HX - Past Medical History Medical history: arthritis, asthma, cancer, COPD, GERD, glaucoma, hyperlipidemia Psychiatric history: no psych history - Past Surgical History Surgical History: cholecystectomy, herniorrhaphy Additional surgical history: Gall bladder removal, hernia repair, cancer removal right eye, tumor removal on neck - Social History Smoking Status: Current every day smoker Packs per day: 0.5 Smokeless Tobacco Status: No Alcohol use: none Drug use: none - Family History Mother Adopted: No Family Member Ethnicity: Non- Living Status: Hx Family Cardiac Disorders: Yes (SD) Hx Family Respiratory Disorders: No Hx Family Cancer: No Hx Family GI Disorders: No Hx Family Endocrine Disorder: No Hx Family Neuromuscular Disorders: No Hx Family Neurologic Disorders: No Hx Family HEENT Disorders: No Hx Family Autoimmune Disorders: No Medications and Allergies Albuterol Sulfate [Albuterol Inhaler] 2 puff IH QID PRN 07/11/16 [History] Latanoprost [Xalatan] 1 drop BOTH EYES HS 07/11/16 [History] Propranolol [Inderal] 10 mg PO BID PRN 07/11/16 [History] RX: Primidone [Mysoline] 100 mg PO BID 07/11/16 [History] RX: Omeprazole [PriLOSEC] 20 mg PO BID #60 capsule.dr 09/29/17 [Rx] RX: Hydrocortisone 2.5% CREAM [Cortaid] 1 appl TP BID PRN #1 tube 10/30/18 [Rx] RX: predniSONE [Prednisone] 50 mg PO DAILY #5 tablet 11/24/18 [Rx] Magic Mouthwash [Magic Mouthwash BLM] 10 ml PO QID PRN #240 ml 11/27/18 [Rx] Acetaminophen [Non-Aspirin] 650 mg PO QID PRN 12/04/18 [History] Albuterol Neb [Proventil Neb] 2.5 mg IH TID PRN 12/04/18 [History] Atorvastatin Calcium [Lipitor] 40 mg PO HS 12/04/18 [History] Calcium Carbonate/Vitamin D3 [Calcium 500-Vit D3 200 Tablet] 2 tab PO BID 12/04/18 [History] Fluticasone Propionate Nasal [Flonase] 1 spr NS DAILY 12/04/18 [History] Guaifenesin [Cough Syrup] 100 mg PO Q4H PRN 12/04/18 [History] Guaifenesin [Mucinex] 600 mg PO BID PRN 12/04/18 [History] RX: Brimonidine 0.2% [Alphagan] 1 drop RIGHT EYE BID 12/04/18 [History] RX: Melatonin 9 mg PO HS PRN 12/04/18 [History] Simethicone [Gas-X] 240 mg PO TID PRN 12/04/18 [History] Tiotropium Br/Olodaterol HCl [Stiolto Respimat Inhal [place]] 2 puff IH DAILY 12/04/18 [History] Zolpidem [Ambien] 5 mg PO HS 12/04/18 [History] Allergy/AdvReac Type Severity Reaction Status Date / Time budesonide Allergy Heartburn Verified 12/04/18 02:35 Sulfa (Sulfonamide AdvReac Intermediate Rash Verified 12/04/18 02:35 Antibiotics) acetaminophen [From Vicodin] AdvReac Nausea Verified 12/04/18 02:35 Formoterol AdvReac Heartburn Verified 12/04/18 02:35 hydrocodone [From Vicodin] AdvReac Nausea Verified 12/04/18 02:35 Constitutional: Present: anorexia, fatigue, fever(s), weight loss. Absent: chills, frequent falls, headache(s), weakness Eyes: Absent: blurry vision, change in vision, diplopia Nose, mouth and throat: Absent: dysphagia, odynophagia Cardiovascular: Present: as per HPI Respiratory: Present: as per HPI, cough, dyspnea, hemoptysis, wheezing Gastrointestinal: Absent: abdominal pain, early satiety, hematochezia, melena, nausea, odynophagia, vomiting Genitourinary: Absent: dysuria Musculoskeletal: Present: muscle weakness Additional comments: left posterior shoulder pain Integumentary: Absent: rash, wounds Neurological: Absent: focal weakness, frequent falls Psychiatric: Present: change in appetite Hematologic/Lymphatic: Present: as per HPI Oncology - Exam - Constitutional General appearance: cooperative, no acute distress, no febrile - Head Head exam: Present: atraumatic - ENT ENT exam: Present: mucous membranes moist, normal oropharynx - Respiratory Respiratory exam: Present: decreased breath sounds, wheezes. Absent: respiratory distress - Cardiovascular Cardiovascular exam: Present: RRR, +S1, +S2 - GI/Abdominal GI/Abdominal exam: Present: normal bowel sounds, soft. Absent: tenderness - Extremities Exam Extremities exam: Present: normal inspection. Absent: calf tenderness - Neurological Exam Neurological exam: Present: alert, oriented X3, no focal deficits, strengths equal and symetr throughout - Psychiatric Psychiatric exam: Present: normal affect, normal mood - Skin Skin exam: Present: dry, intact, normal color, warm Consult Discharge Plan - Plan [facility]errals: [facility] [Primary Care Provider[facility] - Inpatient Charges Provider: Dr. Ritu Matos <Kali Matos - Last Filed: 12/04/18 21:59> Date of Encounter: 12/04/18 - Data of Consult Requesting Physician: Niraj Decker MD Primary Care Provider[facility] Inpatient Charges Provider: Dr. Ritu Matos Consult - Inpatient Medicare Only: [id number] - Attending Attestation I examined this patient and my medical decision-making was reviewed with the Advanced Practice Nurse. I agree with the documented findings, disposition and treatment plan as described except to the extent set forth below. Patient has had 4-[address] HWANG recommended Pulmicort consultation at her last visit. We have requested this be performed during this hospital stay. He is certainly at risk for localized recurrence or this may also be secondary to radiation therapy as well. Patient does have evidence of a new left infraspinatus muscle lesion which was present on the imaging 10 days ago but not present on his imaging in August. This is likely a metastasis. To further evaluate this, we will arrange for outpatient PET CT scan. If patient's found to have localized recurrence or a distant metastasis involving his left infraspinatus muscle,, he will have to consider further therapy. At this juncture, he is uncertain he wants to pursue systemic therapy at this time but would be willing to consider radiation therapy will arrange for outpatient follow-up. Of note, patient underwent CT of the chest just 10 days ago. This showed no evidence for embolism. I do not think the findings on current CT scan represent pulmonary embolism either. No other therapeutic recommendations at this juncture.
[2018-12-05] MEDS: Levalbuterol Neb 1.25 MG/3 ML IH PRN ×4 (03:16→22:12)
[2018-12-05] MEDS: Levalbuterol 1 PUFF INHALER IH SCH ×6 (03:23→23:46)
[2018-12-05] MEDS: Levofloxacin 500 MG/100 ML 500 MG/100 ML BAG IVPB SCH (03:48)
--- NOTE | 2018-12-05 07:00 | Pulmonology Consult Note ---
Date of Encounter: 12/05/18 Time of Encounter: 07:00 Assessment and Plan (1) Hemoptysis Current Visit: Yes Status: Acute In conclusion Mr. Ashton is a very pleasant 83-year-old gentleman who unfortunately suffers from advanced non-small cell lung cancer despite chemoradiation in the past. He presented with what appears to be COPD exacerbation complicated by submassive hemoptysis. I reviewed the patient's CT scan which is notable for left upper lobe collapse which is partial and likely M mostly involved in the lingula based on CT scan findings I also has some chronic changes related to cancer and treatment in the right upper lobe. I discussed t he pros and cons of bronchoscopy with the patient for airway examination to see we can isolate that is the source of bleeding and the patient agreed to proceed. Unfortunately Riley has a large fungating obstructive lesion in the left mainstem bronchus which is likely the cause of his hemoptysis this is secondary to known malignancy. I there was a very trace amount of fresh bleeding from that area but nothing that was too major and I ended up putting just a small dose of topical epinephrine on the tumor itself. I did discuss the case with our thoracic surgeon Dr. Coats and that he reviewed the images with me the pictures taken for bronchoscopy and unfortunately there is nothing to offer as far as tumor debulking or electrocautery that is deemed to be effective this is in large part related to the location/proximity to the pulmonary artery. There was a suggestion of possibly starting brachiotherapy with radiation oncology as a treatment option. I did discuss this with the primary oncology team and they are given a discuss with radiation oncology. From a pulmonary perspective unfortunately prognosis looks very poor and I suspect that the possibility of Riley developing massive hemoptysis is quite high. Be very reasonable to consider hospice at this time and further addressed of goals of care including the utility of endotracheal intubation. Otherwise he should complete approximately 5-7 day course of antibiotics and have a prolonged steroid taper in fact given overall situation be very reasonable to start him on 40 mg by mouth prednisone and decrease by 10 mg weekly until 10 mg and then stop. He will continue his bronchodilator regimen and nebulized breathing treatments I did encourage the patient to stop smoking as this can be associated with repeat exacerbation/bronchitis Thank you for this consultation please call with any questions (2) COPD exacerbation Current Visit: Yes Status: Acute (3) Tobacco abuse Current Visit: No Status: Chronic (4) Non-small cell lung cancer (NSCLC) Current Visit: No Status: Acute Qualifiers: Laterality: unspecified laterality Qualified Code(s): C34.90 - Malignant neoplasm of unspecified part of unspecified bronchus or lung History of Present Illness Consult date: 12/05/18 Requesting physician: June Elkins Reason for consult: lung mass Chief complaint: Coughing up blood History of present illness: Riley Ashton is a very pleasant 83-year-old gentleman well known to the pulmonary service for past admissions. He has advanced emphysema unfortunately complicated by non-small cell lung cancer status post chemoradiation most recent therapy has been immune therapy which she unfortunately he was unable to tolerate and diseases progressed his presented to the hospital for increased work of breathing and cough and has also been coughing up some blood. He describes it as occasional fresh blood but mostly mixed with sputum. Since admission he has been being treated for COPD exacerbation and acute bronchitis. A CT scan was performed on admission which was notable for evidence of progression of malignancy. Pulmonary was consulted for further evaluation of hemoptysis. Riley states today that hemoptysis is resolved overnight he still has a cough but overall his breathing is less labored. Past Med Surg Social Fam HX - Past Medical History Medical history: arthritis, asthma, cancer, COPD, GERD, glaucoma, hyperlipidemia Psychiatric history: no psych history - Past Surgical History Surgical History: cholecystectomy, herniorrhaphy Additional surgical history: Gall bladder removal, hernia repair, cancer removal right eye, tumor removal on neck - Social History Smoking Status: Current every day smoker Packs per day: 0.5 Smokeless Tobacco Status: No Alcohol use: none Drug use: none - Family History Mother Adopted: No Family Member Ethnicity: Non- Living Status: Hx Family Cardiac Disorders: Yes (DC) Hx Family Respiratory Disorders: No Hx Family Cancer: No Hx Family GI Disorders: No Hx Family Endocrine Disorder: No Hx Family Neuromuscular Disorders: No Hx Family Neurologic Disorders: No Hx Family HEENT Disorders: No Hx Family Autoimmune Disorders: No Medications and Allergies Albuterol Sulfate [Albuterol Inhaler] 2 puff IH QID PRN 07/11/16 [History] Latanoprost [Xalatan] 1 drop BOTH EYES HS 07/11/16 [History] Primidone [Mysoline] 100 mg PO BID 07/11/16 [History] Propranolol [Inderal] 10 mg PO BID PRN 07/11/16 [History] Omeprazole [PriLOSEC] 20 mg PO BID #60 capsule. 09/29/17 [Rx] Hydrocortisone 2.5% CREAM [Cortaid] 1 appl TP BID PRN #1 tube 10/30/18 [Rx] predniSONE [Prednisone] 50 mg PO DAILY #5 tablet 11/24/18 [Rx] Magic Mouthwash [Magic Mouthwash BLM] 10 ml PO QID PRN #240 ml 11/27/18 [Rx] Acetaminophen [Non-Aspirin] 650 mg PO QID PRN 12/04/18 [History] Albuterol Neb [Proventil Neb] 2.5 mg IH TID PRN 12/04/18 [History] Atorvastatin Calcium [Lipitor] 40 mg PO HS 12/04/18 [History] Brimonidine 0.2% [Alphagan] 1 drop RIGHT EYE BID 12/04/18 [History] Calcium Carbonate/Vitamin D3 [Calcium 500-Vit D3 200 Tablet] 2 tab PO BID 12/04/18 [History] Fluticasone Propionate Nasal [Flonase] 1 spr NS DAILY 12/04/18 [History] Guaifenesin [Cough Syrup] 100 mg PO Q4H PRN 12/04/18 [History] Guaifenesin [Mucinex] 600 mg PO BID PRN 12/04/18 [History] Melatonin 9 mg PO HS PRN 12/04/18 [History] Simethicone [Gas-X] 240 mg PO TID PRN 12/04/18 [History] Tiotropium Br/Olodaterol HCl [Stiolto Respimat Inhal [place]] 2 puff IH DAILY 12/04/18 [History] Zolpidem [Ambien] 5 mg PO HS 12/04/18 [History] Allergy/AdvReac Type Severity Reaction Status Date / Time budesonide Allergy Heartburn Verified 12/04/18 02:35 Sulfa (Sulfonamide AdvReac Intermediate Rash Verified 12/04/18 02:35 Antibiotics) acetaminophen [From Vicodin] AdvReac Nausea Verified 12/04/18 02:35 Formoterol AdvReac Heartburn Verified 12/04/18 02:35 hydrocodone [From Vicodin] AdvReac Nausea Verified 12/04/18 02:35 All Systems: The remainder of the systems were reviewed and are negative Physical Examination Vital Signs: Vital Signs, Last 4 Hours Temp Pulse Resp BP Pulse Ox 12/05/18 04:06 98.0 F 70 16 125/75 96 12/05/18 03:18 20 95 General appearance: no acute distress Eyes: nonicteric ENT: oropharynx moist Neck: supple Auscultation: bilateral: diminished breath sounds, wheezes, rhonchi (Scattered in all lung orr) Cardiovascular: regular rate and rhythm Gastrointestinal: normoactive bowel sounds, soft, non-tender Integumentary: normal Extremities: no cyanosis, no edema, no clubbing Musculoskeletal: no deformities normal mental status, non-focal exam mood appropriate Results - Laboratory Findings CBC and BMP: 12/04/18 04:02 12/05/18 07:25 PT/INR, D-dimer PT 12.0 Seconds (9.4-12.1) 12/04/18 04:02 Abnormal lab findings: Abnormal lab results RBC 3.96 M/mcL (4.19-5.50) L 12/04/18 04:02 Hgb 11.8 g/dL (12.9-16.9) L 12/04/18 04:02 Hct 36.1 % (37.5-50.1) L 12/04/18 04:02 RDW 15.4 % (11.5-14.5) H 12/04/18 04:02 Immature Gran % 4.3 % (0-4) H 12/04/18 04:02 Lymphocytes # 0.5 K/mcL (0.6-4.6) L 12/04/18 04:02 APTT 41.0 Seconds (26.0-36.0) H 12/04/18 04:02 Glucose 142 mg/dL (70-105) H 12/04/18 04:02 Calcium 8.2 mg/dL (8.6-10.3) L 12/04/18 04:02 Troponin I 0.14 ng/mL (< 0.04) H* 12/04/18 15:35 Serum Total Protein 6.2 g/dL (6.4-8.9) L 12/04/18 04:02 - Diagnostic Findings Chest x-ray: report reviewed, image reviewed - Clinical Findings Intake & Output: Intake & Output 12/04/18 12/04/18 12/05/18 15:59 23:59 07:59 Intake Total 100 / 100 Balance 100 / 100 Consult Discharge Plan - Plan Referrals: [facility] [Primary Care Provider] -
[2018-12-05] MEDS: Budesonide Neb 0.25 MG/2 ML IH SCH ×2 (08:09→22:12)
[2018-12-05 08:20] LABS: BUN/Creatinine Ratio 22 (6-26); Blood Urea Nitrogen 19 mg/dL (8-23); Calcium 8.1 mg/dL (8.6-10.3); Carbon Dioxide 25 mEq/L (23-29); Chloride 105 mEq/L (98-107); Glucose 148 mg/dL (70-105); Osmolality,Calculated 287 (280-300); Potassium 4.2 mEq/L (3.5-5.1); Sodium 136 mEq/L (136-145); eGFR For Non-African Americans > 60 (> 60)
[2018-12-05] MEDS: MethylPREDNISolone 40 MG/ML VIAL IVP SCH ×2 (08:35→15:32)
[2018-12-05] MEDS: Magic Mouthwash 10 ML UD Cup PO SCH ×3 (08:35→16:57)
[2018-12-05] MEDS ORDERED: *HR* Propofol 200 MG/20 ML VIAL IVP ONE (09:31)
[2018-12-05] MEDS ORDERED: Dexamethasone 4 MG/ML VIAL ONE (09:34)
[2018-12-05] MEDS ORDERED: Lidocaine -MPF 2% 2 ML VIAL ONE (09:34)
[2018-12-05] MEDS ORDERED: *HR* Rocuronium Bromide 50 MG/5 ML VIAL ONE (09:34)
[2018-12-05] MEDS ORDERED: Ondansetron 4 MG/2 ML VIAL ONE (09:34)
[2018-12-05] MEDS ORDERED: *HR* Succinylcholine 200 MG/10 ML VIAL IVP ONE (09:59)
--- NOTE | 2018-12-05 10:18 | Anesthesia Evaluation PreOp ---
Date of Encounter: 12/05/18 Time of Encounter: 10:15 - Past History Planned Operation: Bronchoscopy Cardiac History: HTN, Hyperlipidemia, Arrhythmia (AFib currently Sinus) Pulmonary History: Smoker, COPD (home oxygen) EKG MANAGER History: Denies Any Significant HX Other Medical History: GERD Anesthesia History: No Prior Anesthetic Complications Alcohol Use: none Drug use: none Medications and Allergies Albuterol Sulfate [Albuterol Inhaler] 2 puff IH QID PRN 07/11/16 [History] Latanoprost [Xalatan] 1 drop BOTH EYES HS 07/11/16 [History] Primidone [Mysoline] 100 mg PO BID 07/11/16 [History] Propranolol [Inderal] 10 mg PO BID PRN 07/11/16 [History] Omeprazole [PriLOSEC] 20 mg PO BID #60 capsule. 09/29/17 [Rx] Hydrocortisone 2.5% CREAM [Cortaid] 1 appl TP BID PRN #1 tube 10/30/18 [Rx] predniSONE [Prednisone] 50 mg PO DAILY #5 tablet 11/24/18 [Rx] Magic Mouthwash [Magic Mouthwash BLM] 10 ml PO QID PRN #240 ml 11/27/18 [Rx] Acetaminophen [Non-Aspirin] 650 mg PO QID PRN 12/04/18 [History] Albuterol Neb [Proventil Neb] 2.5 mg IH TID PRN 12/04/18 [History] Atorvastatin Calcium [Lipitor] 40 mg PO HS 12/04/18 [History] Brimonidine 0.2% [Alphagan] 1 drop RIGHT EYE BID 12/04/18 [History] Calcium Carbonate/Vitamin D3 [Calcium 500-Vit D3 200 Tablet] 2 tab PO BID 12/04/18 [History] Fluticasone Propionate Nasal [Flonase] 1 spr NS DAILY 12/04/18 [History] Guaifenesin [Cough Syrup] 100 mg PO Q4H PRN 12/04/18 [History] Guaifenesin [Mucinex] 600 mg PO BID PRN 12/04/18 [History] Melatonin 9 mg PO HS PRN 12/04/18 [History] Simethicone [Gas-X] 240 mg PO TID PRN 12/04/18 [History] Tiotropium Br/Olodaterol HCl [Stiolto Respimat Inhal [place]] 2 puff IH DAILY 12/04/18 [History] Zolpidem [Ambien] 5 mg PO HS 12/04/18 [History] Allergy/AdvReac Type Severity Reaction Status Date / Time budesonide Allergy Heartburn Verified 12/04/18 02:35 Sulfa (Sulfonamide AdvReac Intermediate Rash Verified 12/04/18 02:35 Antibiotics) acetaminophen [From Vicodin] AdvReac Nausea Verified 12/04/18 02:35 Formoterol AdvReac Heartburn Verified 12/04/18 02:35 hydrocodone [From Vicodin] AdvReac Nausea Verified 12/04/18 02:35 - Meds/Allergy Pre-op Review Medications Reviewed: Yes Allergies Reviewed: Yes Beta Blockers on Current Med List: Yes (Metoprolol today 826) Anesthesia Results - Labs 12/04/18 04:02 12/05/18 07:25 Laboratory Tests 03/14/18 03/15/18 03/15/18 08:34 03:03 03:03 Hgb 11.7 L Hct 35.8 L Plt Count 193 PT 12.5 H INR 1.1 APTT Sodium 133 L Potassium 3.9 BUN 17 Creatinine 0.88 12/04/18 12/04/18 12/05/18 04:02 04:02 07:25 Hgb 11.8 L Hct 36.1 L Plt Count 183 PT 12.0 INR 1.1 APTT 41.0 H Sodium 136 Potassium 4.2 BUN 19 Creatinine 0.88 - Imaging EKG: report reviewed (SR with PVC) Additional studies: ECHO EF 55%, moderate pulm htn 50mmhg Anesthesia Exam O2 Sat O2 Sat by Pulse Oximetry 96 O2 Sat by Pulse Oximetry 96 O2 Sat by Pulse Oximetry 95 O2 Sat by Pulse Oximetry 98 O2 Sat by Pulse Oximetry 82 O2 Sat by Pulse Oximetry 95 O2 Sat by Pulse Oximetry 97 O2 Sat by Pulse Oximetry 96 O2 Sat by Pulse Oximetry 95 O2 Sat by Pulse Oximetry 95 Vital Signs Temp Pulse Resp BP Pulse Ox 98.5 F 99 18 150/88 93 12/04/18 02:38 12/04/18 02:38 12/04/18 02:38 12/04/18 02:38 12/04/18 02:38 Height: 5'8 Weight: 151 lbs NPO (# of Hours): MN Pain Scale: 0 - HEENT Pupil (Motor): Pupils equal, EOMI Mallampati: II Oral Opening: Greater than 3 - EKG MANAGER LOC: Oriented EKG MANAGER Motor: Normal RUE, Normal LUE, Normal RLE, Normal LLE, Normal Face EKG MANAGER Sensory: Normal: RUE, LUE, RLE, LLE, Face - Cardiac Rhythm: Regular Murmur: None JVD: No Carotid Bruit: No - Pulmonary Respiratory Effort: Symmetrical Anesthesia Assess/Plan ASA Score: 4 (HTN Arrhythmia COPD on home oxygen Lung Cancer) Level of consciousness: Cooperative, Oriented Anesthetic Plan: General Autologous Blood: No Monitoring Plan: Standard Monitors Recovery Plan: PACU (Discussed GA, agrees to proceed)
[2018-12-05] MEDS ORDERED: Lidocaine Viscous Oral Soln 15 ML SOLUTION ONE (10:19)
[2018-12-05] MEDS ORDERED: Ipratropium/Albuterol Neb 3 ML IH ONE (10:22)
[2018-12-05] MEDS ORDERED: Albuterol 2.5 MG/3 ML NEBULIZER ONE (10:52)
[2018-12-05] MEDS ORDERED: *HR* EPINEPHrine 1 MG/10 ML SYRINGE INTRATRACH PRN (11:26)
[2018-12-05] MEDS ORDERED: Ipratropium/Albuterol Neb 3 ML ONE (11:29)
[2018-12-05] MEDS ORDERED: *HR* EPINEPHrine 1 MG/10 ML SYRINGE ONE (11:34)
[2018-12-05 11:45] LABS: Source of Body Fluid LEFT UPPER LOBE LUNG
[2018-12-05] MEDS ORDERED: Racepinephrine Neb 0.5 ML VIAL IH ONE ×2 (12:06→12:07)
--- NOTE | 2018-12-05 12:26 | Anesthesia Evaluation Post Op ---
Date of Encounter: 12/05/18 Time of Encounter: 12:26 - Vital Signs Vital Signs: Vital Signs/O2 Sat, Most Current Temp Pulse Resp BP Pulse Ox 99.2 F 84 29 132/81 92 12/05/18 12:00 12/05/18 12:20 12/05/18 12:20 12/05/18 12:20 12/05/18 12:20 - Lungs Lungs: Clear Ascult./Percussion - Airway Airway: Non-obstructed - Cardiovascular Regular Rate - Mental Status Mental Status: Alert & Oriented, Answers Appropriately - Pain Pain Scale: 0 Pain Scale used: Numeric (1 - 10) - Nausea Vomiting Nausea Vomiting: Not Present - Hydration Hydration: Tolerates oral liquids, Has not voided - Discharge PostOp Status: Transfer Patient to floor
--- NOTE | 2018-12-05 13:02 | Internal Med Progress Note ---
Hospitalist Progress Note - Encounter Date of Encounter: 12/05/18 Time of Encounter: 13:01 - Subjective Interval History: Pt feels much better, he is aware that the hemotpsis likely from the cancer. - Exam Vitals: Temp Pulse Resp BP Pulse Ox 99.2 F 84 29 132/81 92 12/05/18 12:20 12/05/18 12:20 12/05/18 12:20 12/05/18 12:20 12/05/18 12:20 Exam: Gen: A+O x3 heart: s1, s2, rrr lungs: still has wheezing and sounds very tight Abd: soft, NT/ND, BS + all 4 Q LE: no edema - Summary of Assessment and Plan Summary of Assessment and Plan: (1) Hemoptysis Current Visit: Yes Status: Acute Assessment and plan: no further hemotypsis over night, likely due to lung cancer or bronchitis hgb stable --wiill cont IV solumedrol --also repeat CBCs. --appreicte pulm recommendations, pt will need tapering of steroid I will discuss with the pt about intubation (2) Atrial fib/flutter, transient Current Visit: Yes Status: Acute Assessment and plan: 1. Patient developed hemodynamically unstable Atrial fib/flutter w RVR. 2. Patient cardioverted at [facility], currently sinus w PVC's. 3. Will order labs and correct electrolytes as necessary. cont beta blcoker, pt does not have large PE on CT exam Pt will need to go home with edward metcalf (3) COPD exacerbation Current Visit: Yes Status: Acute Assessment and plan: 1. Will order sputum culture and place on antibotics. --cont IV solumedrol 80Q8 --will also cont xeponex --pt is feeing better 4) Torp elevation: likely from Afib will get repeat EKG 5) dispo: tea OK to DC in the Am if the pt feels better Time: 35min - Time Spent with Patient Total time spent is greater than 50% in coordination of care (as documented) at patient's floor/unit and/or counseling patient: Internal Medicine: Result - Labs CBC & Chem 7: 12/04/18 04:02 12/05/18 07:25 Labs: BMP 12/05/18 07:25 Sodium 136 Potassium 4.2 Chloride 105 Carbon Dioxide 25 BUN 19 Creatinine 0.88 Glucose 148 H Calcium 8.1 L Cardiac Enzymes 12/04/18 Range/Units 15:35 Troponin I 0.14 H* (< 0.04) ng/mL - ABG Interpretation ABG results: PT/INR, D-dimer PT 12.0 Seconds (9.4-12.1) 12/04/18 04:02 - Impressions Impressions Echocardiogram 12/04/18 03:27 Impressions: LVEF 55%. Mildly dilated left ventricle. Mild concentric left ventricular hypertrophy. Mild left ventricular diastolic dysfunction. Normal right ventricular structure and function. Mild-moderate mitral regurgitation. Moderate tricuspid regurgitation. Moderate pulmonary hypertension.Estimated RVSP is 50 mmHg. There is a small pericardial effusion present with no echocardiographic evidence of tamponade. Left Ventricular Wall Motion: Rest Echo Findings All wall segments showed normal motion. Findings: Study Quality * Technically adequate exam. ECG Findings * Normal sinus rhythm. Left Ventricle * LVEF 55%. * Mildly dilated left ventricle. * Mild concentric left ventricular hypertrophy. * Mild left ventricular diastolic dysfunction. Right Ventricle * Normal right ventricular structure and function. Left Atrium * Normal left atrial size. Right Atrium * Normal right atrial size. Interatrial Septum * No evidence of PFO by color Doppler. Aortic Valve * Aortic valve not well visualized. * Mildly calcified aortic valve leaflets. * Mildly sclerotic aortic valve leaflets. * No aortic regurgitation. * No aortic stenosis. Mitral Valve * Mild-moderate mitral regurgitation. * No mitral stenosis. * Normal mitral valve structure. Tricuspid Valve * Moderate tricuspid regurgitation. * Moderate pulmonary hypertension.Estimated RVSP is 50 mmHg. * * Estimated RA pressure is 5 mmHg. * No tricuspid stenosis. * Normal tricuspid valve structure. Pulmonic Valve * No pulmonic regurgitation. Aorta * Normally sized aortic root. Pericardium * There is a small pericardial effusion present with no echocardiographic evidence of tamponade. * IVC * Normal IVC dimensions and inspiratory collapse. Pulmonary Artery * Normal visualized portions of the main pulmonary artery. Chest CT 12/04/18 07:22 IMPRESSION: 1. Examination is of low to moderate diagnostic quality to the level of the proximal segmental branches. No evidence of pulmonary embolus to that level; however, in the more distal segmental branches of the right lower lobe, there is relative hypodensity which may be due to mixing artifact versus thrombus. This exam is not diagnostic for that portion of the pulmonary artery. 2. Chronic mediastinal and hilar lymphadenopathy with collapse and consolidation of the left upper lobe. This is in keeping with patient's known malignancy. 3. Persistent small left pleural effusion, suspicious for malignant effusion. 4. Persistent small pericardial effusion. 5. Enhancing soft tissue mass, 2.7 cm in the left infraspinatus muscle, highly suspicious for a soft tissue metastasis. 6. Approximately 1.1 cm left adrenal nodule, suspicious for metastasis given associated findings. D/ / 12/04/2018 09:06:55 Simón Chilel MD / mouna Interpreting Provider: Simón Chilel MD Consult Discharge Plan - Plan [facility]errals: [facility] [Primary Care Provider] -
[2018-12-05 15:40] LABS: Appearance of Body Fluid Cloudy (Clear); Volume of Body Fluid 12 mL
--- NOTE | 2018-12-05 17:23 | Oncology Inp Progress Note ---
<June Elkins L - Last Filed: 12/05/18 20:50> Date of Encounter: 12/05/18 Time of Encounter: 13:00 (1) Hemoptysis Current Visit: Yes Status: Acute Assessment and plan: Presented with persistent hemoptysis x4-6 weeks Endorses about 10 episodes of small amounts of pink tinged sputum on most days He presented to [facility] ED with report of hemoptysis earlier this month, CTA at that time was negative for PE, he was discharged home with azithromycin and prednisone. CT of the chest on presentation reveals Chronic mediastinal and hilar lymphadenopathy with collapse and consolidation of the left upper lobe, Pe rsistent small left pleural effusion, Persistent small pericardial effusion, new enhancing soft tissue mass, 2.7 cm in the left infraspinatus muscle, Approximately 1.1 cm left adrenal nodule. Plan: Consult to pulmonology- S/P bronchoscopy today which revealed large fungating obstructive lesion in the left mainstem bronchus which is likely the cause of his hemoptysis this was treated with a small dose of topical epinephrine. Discussed with pulmonology and this does not appear to be amendable to tumor debulking or electrocautery I did discuss this case with Dr. Azevedo, Radiation Oncologist. He has been previously with concurrent radiotherapy and not a candidate for further chest radiotherapy but we will plan to discuss case in tumor board on 3 am with radiology team to see if this would be amendable to bronchial artery embolization. Further recommendations pending our discussion tomorrow morning In addition to this, we did discuss that this may control his hemoptysis for a short period of time, but without systemic therapy his symptoms will return Patient understands the palliative intent of his treatment, patient and his would like to consider further systemic treatment options to be explored on outpatient basis, they will discuss further with Dr. Chiu. The hospice philosophy was introduced should patient decide not to pursue further treatment (2) Non-small cell lung cancer (NSCLC) Current Visit: No Status: Acute Assessment and plan: Stage IV pleomorphic carcinoma. Refer to HPI for full treatment summary Most recent treatment includes nivolumab, he is status post cycle #3 on 06/25/2018 and developed general decline in performance status which patient felt attributable to immunotherapy and elected not to pursue further treatment. He has been without systemic treatment since this time. He continues with monthly Xgeva with history of bone metastasis. Plan: CT imaging as listed above does note concern for new enhancing soft tissue mass in the left infraspinatus muscle, this may be concerning for progressive metastatic disease. He does endorse some pain to his left posterior shoulder that is worse at night. Patient is currently not on any treatment but states he may consider treatment options if warranted. I will arrange for outpatient follow up with Dr. Azevedo to discuss palliative radiotherapy to soft tissue mass near left infraspinatus Plan as discussed above. Qualifiers: Laterality: unspecified laterality Qualified Code(s): C34.90 - Malignant neoplasm of unspecified part of unspecified bronchus or lung Oncology: Subj Interval history: Mr. Ashton is sitting on the side of the bed, eating lunch. His and friend are at bedside. He is feeling ok today, continues to have troublesome cough but no hemoptysis as of today. Endorses mild sore throat after bronchoscopy. Denies pain, nausea, vomiting, diarrhea, fever or chill. - Constitutional General appearance: cooperative, no acute distress, no febrile - Head Head exam: Present: atraumatic - ENT ENT exam: Present: mucous membranes moist, normal oropharynx - Respiratory Respiratory exam: Present: decreased breath sounds, wheezes. Absent: respiratory distress - Cardiovascular Cardiovascular exam: Present: RRR - GI/Abdominal GI/Abdominal exam: Present: normal bowel sounds, soft. Absent: tenderness - Extremities Exam Extremities exam: Present: normal inspection. Absent: calf tenderness - Neurological Exam Neurological exam: Present: alert, oriented X3, no focal deficits, strengths equal and symetr throughout - Psychiatric Psychiatric exam: Present: normal affect, normal mood - Skin Skin exam: Present: dry, intact, normal color, warm Oncology: Obj Data - Labs CBC & Chem 7: 12/04/18 04:02 12/05/18 07:25 Consult Discharge Plan - Plan [facility]errals: [facility] [Primary Care Provider] - Inpatient Charges Provider: Dr. Ritu Matos <Kali Matos - Last Filed: 12/05/18 21:58> Date of Encounter: 12/05/18 Oncology: Obj Data - Labs CBC & Chem 7: 12/04/18 04:02 12/05/18 07:25 Inpatient Charges Provider: Dr. Ritu Matos Follow up - Inpatient: [id number] - Attending Attestation I examined this patient and my medical decision-making was reviewed with the Advanced Practice Nurse. I agree with the documented findings, disposition and treatment plan as described except to the extent set forth below. and friend at bedside He is feeling better. Hemoptysis has resolved. He underwent bronchoscopy today which revealed recurrence of his tumor locally. Examination reveals lungs which are clear to auscultation. Heart regular rate and rhythm without murmur or gallop or rub. As he has had previous radiation therapy, we cannot re-irradiate this area. We will review his case at tumor conference tomorrow morning. We will consider embolization to decrease risk of bleeding. I did inform the family that her other systemic therapy will he required to address the underlying cause of the bleeding. He is willing to consider this. Radiation oncology was also made aware of his left infraspinatus lesion. We will consider radiation therapy to this given his pain.
[2018-12-05] MEDS: Melatonin 3 MG TABLET PO PRN (21:01)
[2018-12-06] MEDS: MethylPREDNISolone 40 MG/ML VIAL IVP SCH ×4 (00:08→22:33)
[2018-12-06] MEDS: Levalbuterol 1 PUFF INHALER IH SCH (03:46)
[2018-12-06] MEDS: Levofloxacin 500 MG/100 ML 500 MG/100 ML BAG IVPB SCH (04:23)
[2018-12-06 05:53] LABS: Hematocrit 34.6 % (37.5-50.1); Hemoglobin 10.9 g/dL (12.9-16.9); Mean Corpuscular HGB Conc 31.5 g/dL (31.6-35.5); Mean Corpuscular Hemoglobin 29.5 pg (28.0-33.3); Mean Corpuscular Volume 93.5 fL (83.0-100.0); Mean Platelet Volume 9.8 fL (9.4-12.4); Platelet Count 157 K/mcL (140-400); Red Cell Distribution Width 15.6 % (11.5-14.5)
[2018-12-06 06:14] LABS: Basophils # 0.2 K/mcL (0.0-0.2); Lymphocytes # 0.4 K/mcL (0.6-4.6); Monocytes # 0.2 K/mcL (0.0-1.3); Neutrophils # 8.1 K/mcL (1.6-8.9); Platelet Estimate Normal (Normal)
[2018-12-06 06:16] LABS: Alanine Aminotransferase 46 Units/L (7-52); Albumin 3.4 g/dL (3.5-5.7); Albumin/Globulin Ratio 1.3 (1.1-2.2); Alkaline Phosphatase 89 Units/L (34-104); Aspartate Amino Transferase 57 Units/L (13-39); BUN/Creatinine Ratio 30 (6-26); Bilirubin,Total 0.4 mg/dL (0.3-1.0); Blood Urea Nitrogen 25 mg/dL (8-23); Calcium 8.2 mg/dL (8.6-10.3); Carbon Dioxide 27 mEq/L (23-29); Chloride 104 mEq/L (98-107); Globulin 2.6 g/dL (2.4-3.5); Glucose 152 mg/dL (70-105); Osmolality,Calculated 289 (280-300); Potassium 4.7 mEq/L (3.5-5.1); Sodium 136 mEq/L (136-145); eGFR For Non-African Americans > 60 (> 60)
[2018-12-06] MEDS: Budesonide Neb 0.25 MG/2 ML IH SCH ×2 (07:36→19:44)
[2018-12-06] MEDS: Levalbuterol Neb 1.25 MG/3 ML IH PRN (07:36)
[2018-12-06] MEDS: Magic Mouthwash 10 ML UD Cup PO SCH ×3 (08:02→17:11)
[2018-12-06] MEDS ORDERED: 0.9 % Sodium Chloride 500 ML ONE ×2 (10:34→10:47)
[2018-12-06] MEDS ORDERED: Heparin 1,000 UNITS/500 mL 500 ML ONE ×2 (10:34→11:22)
--- NOTE | 2018-12-06 11:10 | Pulmonology Progress Note ---
Date of Encounter: 12/06/18 Time of Encounter: 11:07 Assessment and Plan (1) Hemoptysis Current Visit: Yes Status: Acute 23-year-old gentleman presenting with a hemoptysis secondary to acute bronchitis and COPD exacerbation the cause of the hemoptysis is endobronchial lesion in the left mainstem bronchus. No clear options for treatment from interventional pulmonary at this time. Also discussed case with thoracic surgeon. He will likely need to a different systemic chemotherapy regimen as he is no longer a candidate for further radiation in the chest. Continue bronchodilators and systemic glucocorticoids I recommend a prolonged prednisone taper starting at 40 mg and decreasing by 10 mg weekly to complete a six-week course Also advised the patient to stop smoking has to decrease her chronic airway inflammation which will increased coughing and increased risk of hemoptysis Thank you for this consultation please call with any questions (2) COPD exacerbation Current Visit: Yes Status: Acute (3) Tobacco abuse Current Visit: No Status: Chronic (4) Non-small cell lung cancer (NSCLC) Current Visit: No Status: Acute Qualifiers: Laterality: unspecified laterality Qualified Code(s): C34.90 - Malignant neoplasm of unspecified part of unspecified bronchus or lung Subjective Principal diagnosis: Hemoptysis Interval history: Has done well s/p Bronch. No untoward effects. Still coughing but denies hemoptysis. Objective PUL Vital signs: Last Vital Signs Temp 98.0 F 12/06/18 07:05 Pulse 69 12/06/18 11:04 Resp 22 12/06/18 07:38 BP 137/84 12/06/18 11:04 Pulse Ox 96 12/06/18 11:04 General appearance: no acute distress Eyes: nonicteric ENT: oropharynx moist Auscultation: bilateral: rhonchi Cardiovascular: regular rate and rhythm Gastrointestinal: normoactive bowel sounds, soft, non-tender Integumentary: normal Extremities: no cyanosis, no edema, no clubbing Musculoskeletal: no deformities normal mental status, non-focal exam Results - Laboratory Findings CBC and BMP: 12/06/18 05:35 12/06/18 05:35 PT/INR, D-dimer PT 12.0 Seconds (9.4-12.1) 12/04/18 04:02 Abnormal lab findings: Abnormal lab results RBC 3.70 M/mcL (4.19-5.50) L 12/06/18 05:35 Hgb 10.9 g/dL (12.9-16.9) L 12/06/18 05:35 Hct 34.6 % (37.5-50.1) L 12/06/18 05:35 MCHC 31.5 g/dL (31.6-35.5) L 12/06/18 05:35 RDW 15.6 % (11.5-14.5) H 12/06/18 05:35 Immature Gran % 4.3 % (0-4) H 12/04/18 04:02 Lymphocytes # 0.4 K/mcL (0.6-4.6) L 12/06/18 05:35 APTT 41.0 Seconds (26.0-36.0) H 12/04/18 04:02 BUN 25 mg/dL (8-23) H 12/06/18 05:35 BUN/Creatinine Ratio 30 (6-26) H 12/06/18 05:35 Glucose 152 mg/dL (70-105) H 12/06/18 05:35 Calcium 8.2 mg/dL (8.6-10.3) L 12/06/18 05:35 AST 57 Units/L (13-39) H 12/06/18 05:35 Troponin I 0.14 ng/mL (< 0.04) H* 12/04/18 15:35 Serum Total Protein 6.0 g/dL (6.4-8.9) L 12/06/18 05:35 Albumin 3.4 g/dL (3.5-5.7) L 12/06/18 05:35 Fluid Appearance Cloudy (Clear) A 12/05/18 Unknown - Microbiology Findings Microbiology Findings: Microbiology, Last 48 Hours 12/05/18 Unknown Respiratory Culture - Preliminary Left Upper Lobe Lung Culture is incubating. - Clinical Findings Intake & Output: Intake & Output 12/05/18 12/06/18 12/06/18 23:59 07:59 15:59 Intake Total 340 / 340 Output Total 300 / 300 Balance -300 / -300 340 / 340 Weight 67.8 kg Consult Discharge Plan - Plan [facility]errals: [facility] [Primary Care Provider] -
[2018-12-06] MEDS ORDERED: *HR* FentaNYL (PF) 100 MCG/2 ML VIAL IVP ONE (11:33)
[2018-12-06] MEDS ORDERED: *HR* FentaNYL (PF) 100 MCG/2 ML VIAL ONE (11:34)
[2018-12-06] MEDS ORDERED: Isovue-300 50 ML VIAL IVP ONE ×3 (11:46)
[2018-12-06] MEDS ORDERED: 0.9 % Sodium Chloride 1,000 ML ONE (12:23)
[2018-12-06] MEDS ORDERED: Acetaminophen 325 MG TABLET PO PRN (12:28)
--- NOTE | 2018-12-06 18:19 | Oncology Inp Progress Note ---
<June Elkins L - Last Filed: 12/06/18 18:17> Date of Encounter: 12/06/18 Time of Encounter: 13:30 (1) Hemoptysis Current Visit: Yes Status: Acute Assessment and plan: Presented with persistent hemoptysis x4-6 weeks Endorses about 10 episodes of small amounts of pink tinged sputum on most days He presented to [facility] ED with report of hemoptysis earlier this month, CTA at that time was negative for PE, he was discharged home with azithromycin and prednisone. CT of the chest on presentation reveals Chronic mediastinal and hilar lymphadenopathy with collapse and consolidation of the left upper lobe, Pe rsistent small left pleural effusion, Persistent small pericardial effusion, new enhancing soft tissue mass, 2.7 cm in the left infraspinatus muscle, Approximately 1.1 cm left adrenal nodule. Consult to pulmonology- S/P bronchoscopy 12/05 which revealed large fungating obstructive lesion in the left mainstem bronchus which is likely the cause of his hemoptysis this was treated with a small dose of topical epinephrine. Plan: He has been previously treated with concurrent radiotherapy and not a candidate for further chest radiotherapy Following discussion in tumor board this morning with the consensus from group was to proceed with bronchial artery embolization. He tolerated procedure well. Plan is to keep him in observation in ICU while leaving groin catheter in place should they need re-access if he develops further hemoptysis In addition to this, we did discuss that this may control his hemoptysis for a short period of time, but without systemic therapy his symptoms will return Patient understands the palliative intent of his treatment, patient and his would like to consider further systemic treatment options to be explored on outpatient basis, they will discuss further with Dr. Chiu. (2) Non-small cell lung cancer (NSCLC) Current Visit: No Status: Acute Assessment and plan: Stage IV pleomorphic carcinoma. Refer to HPI for full treatment summary Most recent treatment includes nivolumab, he is status post cycle #3 on 06/25/2018 and developed general decline in performance status which patient felt attributable to immunotherapy and elected not to pursue further treatment. He has been without systemic treatment since this time. He continues with monthly Xgeva with history of bone metastasis. Plan: CT imaging as listed above does note concern for new enhancing soft tissue mass in the left infraspinatus muscle, this may be concerning for progressive metastatic disease. He does endorse some pain to his left posterior shoulder that is worse at night. Patient is currently not on any treatment but states he may consider treatment options if warranted. I will arrange for outpatient follow up with Dr. Azevedo to discuss palliative radiotherapy to soft tissue mass near left infraspinatus Plan as discussed above. Qualifiers: Laterality: unspecified laterality Qualified Code(s): C34.90 - Malignant n eoplasm of unspecified part of unspecified bronchus or lung Oncology: Subj Interval history: Resting in bed after recent transfer from interventional radiology suite to intensive care unit. Due to presence of groin he is needing to Lie Flat. He Is Doing Well and Denies Pain. Tolerated Procedure Well. He denied hemoptysis overnight or this morning. No hemoptysis since procedure. - Constitutional General appearance: cooperative, no acute distress, no febrile - ENT ENT exam: Present: mucous membranes moist, normal oropharynx - Respiratory Respiratory exam: Present: rhonchi, wheezes. Absent: respiratory distress - Cardiovascular Cardiovascular exam: Present: RRR, +S1, +S2 - GI/Abdominal GI/Abdominal exam: Present: normal bowel sounds, soft. Absent: tenderness - Extremities Exam Extremities exam: Present: normal inspection. Absent: calf tenderness - Neurological Exam Neurological exam: Present: alert, oriented X3, no focal deficits, strengths equal and symetr throughout - Psychiatric Psychiatric exam: Present: normal affect, normal mood - Skin Skin exam: Present: dry, intact, normal color, warm Oncology: Obj Data - Labs CBC & Chem 7: 12/06/18 05:35 12/06/18 05:35 Consult Discharge Plan - Plan [facility]errals: [facility] [Primary Care Provider] - Inpatient Charges Provider: Dr. Ritu Matos <Kali Matos - Last Filed: 12/06/18 22:42> Date of Encounter: 12/06/18 Oncology: Obj Data - Labs CBC & Chem 7: 12/06/18 05:35 12/06/18 05:35 Inpatient Charges Provider: Dr. Ritu Matos Follow up - Inpatient: [id number] - Attending Attestation I examined this patient and my medical decision-making was reviewed with the Advanced Practice Nurse. I agree with the documented findings, disposition and treatment plan as described except to the extent set forth below. His case was reviewed at tumor board this morning. Interventional radiology agreed with embolization. This was completed although difficult. Recommendation was to keep that she can overnight. If he is without evidence of hemoptysis to hold the sheet tomorrow and hopeful discharge 24-48 hours later. He is currently resting in the ICU following his embolization procedure. Cough has improved. He has scant hemoptysis following the procedure. None since. No dyspnea on exertion. No orthopnea, paroxysmal nocturnal dyspnea. Groin is a bit sore from the procedure. Discussed plan with family at bedside.
--- NOTE | 2018-12-06 18:39 | Internal Med Progress Note ---
Hospitalist Progress Note - Encounter Date of Encounter: 12/06/18 Time of Encounter: 11:00 - Subjective Interval History: Patient status post bronchial artery embolization Monitor in the ICU overnight - Exam Vitals: Temp Pulse Resp BP Pulse Ox 97.6 F 65 20 126/91 96 12/06/18 16:23 12/06/18 18:00 12/06/18 18:00 12/06/18 18:00 12/06/18 18:00 Exam: Gen.: Nonacute distress, alert and oriented 3 ENT: Mucosal membranes moist Respiratory: Lungs are clear to auscultation bilaterally without any wheezing rhonchi or rales Cardiovascular: Normal S1 and S2 regular rate rhythm no murmurs rubs or gallops Abdomen: Soft, nontender and nondistended with positive bowel sounds Extremities: No lower extremity edema Skin: Normal color - Assessment and Plan (1) Hemoptysis Current Visit: Yes Status: Acute Assessment and Plan: Patient status post bronchial artery embolization per hematology/oncology recommendations. Will monitor in the ICU overnight. (2) Non-small cell lung cancer (NSCLC) Current Visit: No Status: Acute Assessment and Plan: Patient with stage IV pleomorphic carcinoma currently receiving treatment per hematology oncology. (3) COPD exacerbation Current Visit: Yes Status: Acute Assessment and Plan: Will continue IV antibiotics with IV Solu-Medrol. (4) Atrial fib/flutter, transient Current Visit: Yes Status: Acute Assessment and Plan: Controlled; Continue beta christophe DVT Prophylaxis: EPCD'S - Time Spent with Patient Total time spent is greater than 50% in coordination of care (as documented) at patient's floor/unit and/or counseling patient: Internal Medicine: Result - Labs CBC & Chem 7: 12/06/18 05:35 12/06/18 05:35 Labs: Short CBC 12/06/18 Range/Units 05:35 WBC 8.8 (4.3-11.1) K/mcL Hgb 10.9 L (12.9-16.9) g/dL Hct 34.6 L (37.5-50.1) % Plt Count 157 (140-400) K/mcL Neutrophils # 8.1 (1.6-8.9) K/mcL BMP 12/06/18 05:35 Sodium 136 Potassium 4.7 Chloride 104 Carbon Dioxide 27 BUN 25 H Creatinine 0.82 Glucose 152 H Calcium 8.2 L Liver Function 03/28/19 Range/Units 05:35 Total Bilirubin 0.4 (0.3-1.0) mg/dL AST 57 H (13-39) Units/L ALT 46 (7-52) Units/L Alkaline Phosphatase 89 (34-104) Units/L Albumin 3.4 L (3.5-5.7) g/dL - ABG Interpretation ABG results: PT/INR, D-dimer PT 12.0 Seconds (9.4-12.1) 12/04/18 04:02 - Impressions Impressions Embolization 12/06/18 00:00 IMPRESSION: Successful embolization empirically of tumor blush in a bronchial artery supplying the left lung tumor. D/ / Theodore Garrido MD / Theodore Garrido MD Interpreting Provider: Theodore Garrido MD Consult Discharge Plan - Plan [facility]errals: [facility] [Primary Care Provider] - (2) Non-small cell lung cancer (NSCLC) Qualifiers: Laterality: unspecified laterality Qualified Code(s): C34.90 - Malignant neoplasm of unspecified part of unspecified bronchus or lung
[2018-12-06] MEDS: Levalbuterol Neb 1.25 MG/3 ML IH SCH (19:44)
[2018-12-06] MEDS: Melatonin 3 MG TABLET PO PRN (22:33)
[2018-12-07] MEDS: Levalbuterol Neb 1.25 MG/3 ML IH SCH ×4 (00:02→11:03)
[2018-12-07] MEDS: Levofloxacin 500 MG/100 ML 500 MG/100 ML BAG IVPB SCH (03:10)
[2018-12-07 03:41] LABS: Basophils % 0.1 %; Eosinophils % 0.1 %; Hematocrit 33.7 % (37.5-50.1); Hemoglobin 10.8 g/dL (12.9-16.9); Immature Granulocytes % 2.3 % (0-4); Lymphocytes # 0.1 K/mcL (0.6-4.6); Lymphocytes % 0.9 %; Mean Corpuscular Hemoglobin 29.8 pg (28.0-33.3); Mean Corpuscular Volume 93.1 fL (83.0-100.0); Monocytes # 0.3 K/mcL (0.0-1.3); Monocytes % 3.2 %; Platelet Count 150 K/mcL (140-400); Red Blood Count 3.62 M/mcL (4.19-5.50); Red Cell Distribution Width 15.5 % (11.5-14.5); Segmented Neutrophils % 93.4 %
[2018-12-07 03:52] LABS: Alanine Aminotransferase 51 Units/L (7-52); Albumin 3.5 g/dL (3.5-5.7); Albumin/Globulin Ratio 1.5 (1.1-2.2); Alkaline Phosphatase 82 Units/L (34-104); Aspartate Amino Transferase 47 Units/L (13-39); BUN/Creatinine Ratio 32 (6-26); Bilirubin,Total 0.5 mg/dL (0.3-1.0); Blood Urea Nitrogen 25 mg/dL (8-23); Carbon Dioxide 26 mEq/L (23-29); Chloride 106 mEq/L (98-107); Globulin 2.4 g/dL (2.4-3.5); Glucose 175 mg/dL (70-105); Osmolality,Calculated 297 (280-300); Potassium 3.9 mEq/L (3.5-5.1); Sodium 139 mEq/L (136-145); Total Protein 5.9 g/dL (6.4-8.9); eGFR For Non-African Americans > 60 (> 60)
[2018-12-07 06:33] LABS: Platelet Estimate Normal (Normal)
[2018-12-07] MEDS: Budesonide Neb 0.25 MG/2 ML IH SCH (08:03)
[2018-12-07] MEDS: MethylPREDNISolone 40 MG/ML VIAL IVP SCH (08:12)
[2018-12-07] MEDS: Magic Mouthwash 10 ML UD Cup PO SCH ×2 (08:12→12:26)
--- NOTE | 2018-12-07 12:08 | Oncology Inp Progress Note ---
Date of Encounter: 12/07/18 (1) Hemoptysis Current Visit: Yes Status: Acute Assessment and plan: Presented with persistent hemoptysis x4-6 weeks Endorses about 10 episodes of small amounts of pink tinged sputum on most days He presented to [facility] ED with report of hemoptysis earlier this month, CTA at that time was negative for PE, he was discharged home with azithromycin and prednisone. CT of the chest on presentation reveals Chronic mediastinal and hilar lymphadenopathy with collapse and consolidation of the left upper lobe, Persistent small left pleural effusion, Persistent small pericardial effusion, new enhancing soft tissue mass, 2.7 cm in the left infraspinatus muscle, Approximately 1.1 cm left adrenal nodule. Consult to pulmonology- S/P bronchoscopy 12/05 which revealed large fungating obstructive lesion in the left mainstem bronchus which is likely the cause of his hemoptysis this was treated with a small dose of topical epinephrine. Plan: He has been previously treated with concurrent radiotherapy and not a candidate for further chest radiotherapy Following discussion in tumor board this morning with the consensus from group was to proceed with bronchial artery embolization. He tolerated procedure well. Plan is to keep him in observation in ICU while leaving groin catheter in place should they need re-access if he develops further hemoptysis In addition to this, we did discuss that this may control his hemoptysis for a short period of time, but without systemic therapy his symptoms will return Patient understands the palliative intent of his treatment, patient and his would like to consider further systemic treatment options to be explored on outpatient basis, they will discuss further with Dr. Chiu. (2) Non-small cell lung cancer (NSCLC) Current Visit: No Status: Acute Assessment and plan: Stage IV pleomorphic carcinoma. Refer to HPI for full treatment summary Most recent treatment includes nivolumab, he is status post cycle #3 on 06/25/2018 and developed general decline in performance status which patient felt attributable to immunotherapy and elected not to pursue further treatment. He has been without systemic treatment since this time. He continues with monthly Xgeva with history of bone metastasis. Plan: CT imaging as listed above does note concern for new enhancing soft tissue mass in the left infraspinatus muscle, this may be concerning for progressive metastatic disease. He does endorse some pain to his left posterior shoulder that is worse at night. Patient is currently not on any treatment but states he may consider treatment options if warranted. I will arrange for outpatient follow up with Dr. Azevedo to discuss palliative radiotherapy to soft tissue mass near left infraspinatus Plan as discussed above. Qualifiers: Laterality: unspecified laterality Qualified Code(s): C34.90 - Malignant neoplasm of unspecified part of unspecified bronchus or lung Oncology: Obj Data - Labs CBC & Chem 7: 12/07/18 03:20 12/07/18 03:20 Consult Discharge Plan - Plan Referrals: [facility] [Primary Care Provider] -
[2018-12-07 14:14] VITALS: BP 129/78
--- NOTE | 2018-12-07 14:37 | Discharge Summary ---
Orders not resulted at time of discharge: Pending orders 12/04/18 03:27 Culture,Sputum with Gram Stain [RM] Stat 12/05/18 AFB Culture, Respiratory [TB] Routine AFB Smear [TB] Routine Culture,Respiratory [RM] Routine Fungal Culture [MYC] Routine Herpes Simplex PCR Body Fl Routine Legionella Culture [RM] Routine Resp.Virus Panel,Body Fl Routine 12/06/18 IR 2 3 order cath abd pelv ex [IR] Routine IR embolization any meth [IR] Routine 12/08/18 04:00 Complete Blood Count [HEME] AM 0400 Comprehensive Metabolic Panel AM 0400 12/09/18 04:00 Complete Blood Count [HEME] AM 0400 Comprehensive Metabolic Panel AM 0400 12/10/18 04:00 Complete Blood Count [HEME] AM 0400 Comprehensive Metabolic Panel AM 0400 Date of Encounter: 12/07/18 Time of Encounter: 11:00 - Discharge Diagnosis (1) Hemoptysis Priority: Primary Status: Acute (2) Non-small cell lung cancer (NSCLC) Priority: Primary Status: Acute Qualifiers: Laterality: unspecified laterality Qualified Code(s): C34.90 - Malignant neoplasm of unspecified part of unspecified bronchus or lung (3) COPD exacerbation Priority: Secondary Status: Acute (4) Atrial fib/flutter, transient Priority: Secondary Status: Acute Hospital course: Patient is a 83-year-old male who presented due to hemoptysis. During patients hospital pulmonology was consulted and suspect symptoms secondary to patients poor prognosis of non-small cell lung carcinoma. The decision was made with hematology oncology for patient to receive bronchial artery embolization. Patient will be discharged to follow up with hematology oncology as an outpatient for further management of non-small cell lung carcinoma. - Time Spent with Patient Total time spent providing and/or coordinating discharge services: Time spent: Less than 30 minutes - Discharge Medications Prescriptions: New Metoprolol [Lopressor] 50 mg PO BID 30 Days #60 tablet Naloxone [Narcan] 0.4 mg IVP Q2M PRN inj PRN Reason: See Comments predniSONE [PredniSONE] 10 mg PO DAILY 42 Days #147 tablet Continue Primidone [Mysoline] 100 mg PO BID Latanoprost [Xalatan] 1 drop BOTH EYES HS Albuterol Sulfate [Albuterol Inhaler] 2 puff IH QID PRN PRN Reason: Shortness Of Breath Omeprazole [PriLOSEC] 20 mg PO BID #60 capsule. Hydrocortisone 2.5% CREAM [Cortaid] 1 appl TP BID PRN #1 tube PRN Reason: Skin Irritation Magic Mouthwash [Magic Mouthwash BLM] 10 ml PO QID PRN #240 ml PRN Reason: Mouth Irritation Acetaminophen [Non-Aspirin] 650 mg PO QID PRN PRN Reason: Pain Atorvastatin Calcium [Lipitor] 40 mg PO HS Brimonidine 0.2% [Alphagan] 1 drop RIGHT EYE BID Calcium Carbonate/Vitamin D3 [Calcium 500-Vit D3 200 Tablet] 2 tab PO BID Fluticasone Propionate Nasal [Flonase] 1 spr NS DAILY Guaifenesin [Cough Syrup] 100 mg PO Q4H PRN PRN Reason: Congestion Guaifenesin [Mucinex] 600 mg PO BID PRN PRN Reason: COUGH/CONGESTION Melatonin 9 mg PO HS PRN PRN Reason: Sleep Simethicone [Gas-X] 240 mg PO TID PRN PRN Reason: GAS Tiotropium Br/Olodaterol HCl [Stiolto Respimat Inhal [place]] 2 puff IH DAILY Zolpidem [Ambien] 5 mg PO HS Albuterol Neb [Proventil Neb] 2.5 mg IH TID PRN PRN Reason: BREATHING Discontinued Propranolol [Inderal] 10 mg PO BID PRN PRN Reason: tremor predniSONE [Prednisone] 50 mg PO DAILY #5 tablet Home Medications: Albuterol Sulfate [Albuterol Inhaler] 2 puff IH QID PRN 07/11/16 [History] Latanoprost [Xalatan] 1 drop BOTH EYES HS 07/11/16 [History] Primidone [Mysoline] 100 mg PO BID 07/11/16 [History] Omeprazole [PriLOSEC] 20 mg PO BID #60 capsule. 09/29/17 [Rx] Hydrocortisone 2.5% CREAM [Cortaid] 1 appl TP BID PRN #1 tube 10/30/18 [Rx] Magic Mouthwash [Magic Mouthwash BLM] 10 ml PO QID PRN #240 ml 11/27/18 [Rx] Acetaminophen [Non-Aspirin] 650 mg PO QID PRN 12/04/18 [History] Albuterol Neb [Proventil Neb] 2.5 mg IH TID PRN 12/04/18 [History] Atorvastatin Calcium [Lipitor] 40 mg PO HS 12/04/18 [History] Brimonidine 0.2% [Alphagan] 1 drop RIGHT EYE BID 12/04/18 [History] Calcium Carbonate/Vitamin D3 [Calcium 500-Vit D3 200 Tablet] 2 tab PO BID 12/04/18 [History] Fluticasone Propionate Nasal [Flonase] 1 spr NS DAILY 12/04/18 [History] Guaifenesin [Cough Syrup] 100 mg PO Q4H PRN 12/04/18 [History] Guaifenesin [Mucinex] 600 mg PO BID PRN 12/04/18 [History] Melatonin 9 mg PO HS PRN 12/04/18 [History] Simethicone [Gas-X] 240 mg PO TID PRN 12/04/18 [History] Tiotropium Br/Olodaterol HCl [Stiolto Respimat Inhal [place]] 2 puff IH DAILY 12/04/18 [History] Zolpidem [Ambien] 5 mg PO HS 12/04/18 [History] Metoprolol [Lopressor] 50 mg PO BID 30 Days #60 tablet 12/07/18 [Rx] Naloxone [Narcan] 0.4 mg IVP Q2M PRN inj 12/07/18 [Rx] predniSONE [PredniSONE] 10 mg PO DAILY 42 Days #147 tablet 12/07/18 [Rx] Allergies/Adverse Reactions: Allergy/AdvReac Type Severity Reaction Status Date / Time budesonide Allergy Heartburn Verified 12/04/18 02:35 Sulfa (Sulfonamide AdvReac Intermediate Rash Verified 12/04/18 02:35 Antibiotics) acetaminophen [From Vicodin] AdvReac Nausea Verified 12/04/18 02:35 Formoterol AdvReac Heartburn Verified 12/04/18 02:35 hydrocodone [From Vicodin] AdvReac Nausea Verified 12/04/18 02:35 Date of admission: 12/04/18 04:15 [facility] care physician: [facility] Consults: 12/04/18 03:27 Consult to Oncology [CONS] Routine Consulting Provider: [facility] Reason for Consult: lung cancer with hemoptysis Call Completed: No 12/04/18 10:54 Consult to Nurse Navigator [CONS] Routine Comment: copd 12/04/18 11:02 OT [Consult to Occupational Therapy] [CONS] Routine Comment: Evaluate, develop and implement POC Reason for Consult: deblity Does patient have active BEDREST order?: No Is patient medically & hemodynamically stable?: Yes PT [Consult to Physical Therapy] [CONS] Routine Comment: Evaluate, develop and implement POC Reason for Consult: deblity Does patient have active BEDREST order?: No Is patient medically & hemodynamically stable?: Yes 12/04/18 18:05 Consult to Pulmonology [CONS] Routine Consulting Provider: [facility] Reason for Consult: Hemoptysis, known stage IV pleomorphic carcinoma with collapse and consolidation of the left upper lobe---Will call in AM Call Completed: Yes 12/06/18 09:42 Consult to Interventional Radiology [CONS] Routine Consulting Provider: Radiology Interventional [facility] Reason for Consult: Embolization for gross hemoptysis Call Completed: Yes - Constitutional Vitals: Temp Pulse Resp BP Pulse Ox 98.2 F 91 18 129/78 98 12/07/18 12:05 12/07/18 14:00 12/07/18 14:00 12/07/18 14:00 12/07/18 14:00 General appearance: Present: cooperative, mild distress, pleasant, no acute distress, answers questions appropriately Exam: Gen.: Nonacute distress, alert and oriented 3 Skin: Normal color - Patient Status Disposition: Home Health Service Condition: Good - Discharge Instructions Follow Up With: [facility] [Primary Care Provider] -
--- NOTE | 2018-12-07 14:39 | Physician Discharge Referral ---
Home Health/Hosp Referral Info Transfer to: Home Health - Diagnosis (1) Hemoptysis Status: Acute (2) Non-small cell lung cancer (NSCLC) Status: Acute (3) COPD exacerbation Status: Acute (4) Atrial fib/flutter, transient Status: Acute - Respiratory Orders Smoking Cessation: Smoking cessation has been advised. For more information, call the [place] Tobacco Quit Line at 8-433-NUWX-NOW. - Services Needed Following services are medically necessary services: Nursing, Physical Therapy, Occupational Therapy - Transfer Medications Prescriptions: Metoprolol [Lopressor] 50 mg PO BID 30 Days #60 tablet predniSONE [PredniSONE] 10 mg PO DAILY 42 Days #147 tablet Home Medications: Albuterol Sulfate [Albuterol Inhaler] 2 puff IH QID PRN 07/11/16 [History] Latanoprost [Xalatan] 1 drop BOTH EYES HS 07/11/16 [History] Primidone [Mysoline] 100 mg PO BID 07/11/16 [History] Omeprazole [PriLOSEC] 20 mg PO BID #60 capsule. 09/29/17 [Rx] Hydrocortisone 2.5% CREAM [Cortaid] 1 appl TP BID PRN #1 tube 10/30/18 [Rx] Magic Mouthwash [Magic Mouthwash BLM] 10 ml PO QID PRN #240 ml 11/27/18 [Rx] Acetaminophen [Non-Aspirin] 650 mg PO QID PRN 12/04/18 [History] Albuterol Neb [Proventil Neb] 2.5 mg IH TID PRN 12/04/18 [History] Atorvastatin Calcium [Lipitor] 40 mg PO HS 12/04/18 [History] Brimonidine 0.2% [Alphagan] 1 drop RIGHT EYE BID 12/04/18 [History] Calcium Carbonate/Vitamin D3 [Calcium 500-Vit D3 200 Tablet] 2 tab PO BID [History] Fluticasone Propionate Nasal [Flonase] 1 spr NS DAILY 12/04/18 [History] Guaifenesin [Cough Syrup] 100 mg PO Q4H PRN 12/04/18 [History] Guaifenesin [Mucinex] 600 mg PO BID PRN 12/04/18 [History] Melatonin 9 mg PO HS PRN 12/04/18 [History] Simethicone [Gas-X] 240 mg PO TID PRN 12/04/18 [History] Tiotropium Br/Olodaterol HCl [Stiolto Respimat Inhal [place]] 2 puff IH DAILY 12/04/18 [History] Zolpidem [Ambien] 5 mg PO HS 12/04/18 [History] Metoprolol [Lopressor] 50 mg PO BID 30 Days #60 tablet 12/07/18 [Rx] Naloxone [Narcan] 0.4 mg IVP Q2M PRN inj 12/07/18 [Rx] predniSONE [PredniSONE] 10 mg PO DAILY 42 Days #147 tablet 12/07/18 [Rx] Allergies/Adverse Reactions: Allergy/AdvReac Type Severity Reaction Status Date / Time budesonide Allergy Heartburn Verified 12/04/18 02:35 Sulfa (Sulfonamide AdvReac Intermediate Rash Verified 12/04/18 02:35 Antibiotics) acetaminophen [From Vicodin] AdvReac Nausea Verified 12/04/18 02:35 Formoterol AdvReac Heartburn Verified 12/04/18 02:35 hydrocodone [From Vicodin] AdvReac Nausea Verified 12/04/18 02:35 Certification: Further, I certify that my clinical findings support that this patient is homebound (i.e. absences from home require considerable and taxing effort and are for medical reasons or [employer] services or infrequently or short duration when for other reasons) because: Homebound Reason: Patient requires assistance of a person or device to safely leave home Attestation: My signature below is to certify that this patient is under my care and that I, or nurse practitioner, or a physician's assistant loan processor working with me, has a [id number] encounter with this patient.
[2018-12-07 14:40] LABS: Influenza A PCR Body Fluid NOT DETECTED; Influenza B PCR Body Fluid NOT DETECTED; RVP Body Fluid Source BAL LUL
[2018-12-08 10:50] LABS: RSV PCR Body Fluid NOT DETECTED
[2018-12-09 17:41] LABS: HSV Source BAL
== END 2018-12-07 14:55 | disposition home health service (06) | DRG 982 ==
LOC: 2ANU → SUATTDRO 04:15 → ICNU 12-06 11:51
PROVIDERS: ADMIT Family Medicine; ATTEND Hospitalist